=== PATIENT | female | born 1945 ===

== ENCOUNTER 2017-12-21 10:32 | Inpatient (IN) | payer OTHER ==
[~2017-12-21] VITALS: Ht 167.6 cm; Wt 137.6 kg
--- NOTE | 2017-12-21 10:53 | CT SCAN REPORT ---
EXAMINATION: CT HEAD WITHOUT CONTRAST CLINICAL INFORMATION: Left-sided facial droop. Question cerebrovascular accident. COMPARISON: No relevant prior imaging. TECHNIQUE: Contiguous axial imaging was performed from the skull base to vertex without intravenous administration of contrast. DLP: 620.92 mGy-cm FINDINGS: There is no acute intracranial hemorrhage or abnormal extra-axial collection. No intracranial mass effect or midline shift. Lateral and third ventricles are proportionate to the subarachnoid spaces. Mild global parenchymal volume loss. No hydrocephalus. Scattered ill-defined foci of hypoattenuation are visualized within the periventricular white matter that most likely represent a chronic manifestation of small vessel ischemia. Arana-white matter differentiation is otherwise grossly preserved and there is no evidence of acute territorial infarct. The calvarium and skull base are intact. Mastoid air cells and middle ear cavities are well aerated. Visualized paranasal sinuses are well aerated. IMPRESSION: Mild global parenchymal volume loss and scattered chronic small vessel ischemic changes within the periventricular white matter. No evidence of acute territorial infarct or hemorrhage. This critical result was discussed with Dixon Green at 12/21/2017 10:48 AM and it was ascertained that the content and urgency of the report was understood at the time of direct communication.
--- NOTE | 2017-12-21 11:01 | ED NEURO DEFICIT/STROKE ---
See Addendum History of Present Illness General Chief Complaint: Neuro Symptoms/ Deficit Stated Complaint: BIBA FOR STROKE ALERT Source: patient, family, EMS Exam Limitations: no limitations Vital Signs & Intake/Output Vital Signs & Intake/Output Vital Signs Date Time Temp Pulse Resp B/P B/P Pulse O2 O2 Flow FiO2 Mean Ox Delivery Rate 12/21 1205 Nasal 2.0L Cannula 12/21 1050 97.7 67 20 126/61 100 Room Air Allergies Coded Allergies: codeine (Mild, ITCHING 12/21/17) Reconcile Medications Albuterol Sulfate 2.5 MG/3 ML (0.083 %) VIAL.NEB 1 Vial INH/STEPHEN Q4P PRN SHORTNESS OF BREATH (Reported) Amitriptyline HCl 10 MG TABLET 1 TAB PO QPM SLEEP (Reported) Aspirin (Aspirin*) 81 MG TAB.CHEW 1 TAB PO DAILY HEART HEALTH (Reported) Atorvastatin Calcium 20 MG TABLET 1 TAB PO DAILY CHOLESTEROL (Reported) Budesonide 0.25 MG/2 ML AMPUL.NEB 1 Vial INH/STEPHEN BID PRN SHORTNESS OF BREATH (Reported) Gabapentin 100 MG CAPSULE 1 CAP PO QPM SLEEP (Reported) Glimepiride (Amaryl) 1 MG TABLET 1 TAB PO DAILY PRN DM (Reported) Metoprolol Succinate 50 MG TAB.ER.24H 1 TAB PO DAILY HEART (Reported) Pantoprazole Sodium 40 MG TABLET.DR 1 TAB PO DAILY GI (Reported) Sitagliptin Phosphate (Januvia) 25 MG TABLET 1 TAB PO DAILY DIABETES ( Reported) Sucroferric Oxyhydroxide (Velphoro) 500 MG IRON TAB.CHEW 1 TAB PO TID BLOOD ( Reported) Triage Nurses Notes Reviewed? yes HPI: 72-year-old female with a history of diabetes, hypertension, dialysis presents with acute onset of left-sided weakness and difficulty speaking. This was witnessed by daughter. Symptoms occurred at 10:00 this morning. EMS responded. They found her to have difficulty speaking but weakness was improving. They noted that the daughter believed her to have left-sided facial droop. Upon arrival, patient complains of generalized lower extremity weakness. She also describes some decreased sensation in bilateral lower extremities. There is no asymmetric weakness. Patient feels generally unwell. She denies any chest pain , headache. She did have nausea briefly. Patient denies a history of CVA, TIA or other related neurologic conditions. Patient does receive heparin around her dialysis. She is not on any chronic anticoagulation. Patient last dialyzed on Tuesday. She is due to dialyze today. Past History Travel History Traveled to [place] past 21 day No Medical History Any Pertinent Medical History? see below for history Neurological: NONE EENT: NONE Cardiovascular: hypertension, hyperlipidemia Respiratory: NONE Renal: ESRD on HD Surgical History Surgical History: non-contributory Psychosocial History Tobacco Use: Never used ETOH Use: occasional use Illicit Drug Use: denies illicit drug use Family History Hx Contributory? No Review of Systems Review of Systems Constitutional: Reports: malaise, weakness. EENTM: Denies: see HPI. Respiratory: Denies: no symptoms. Cardiovascular: Denies: no symptoms. GI: Reports: nausea. Denies: abdominal pain. Genitourinary: Denies: no symptoms. Musculoskeletal: Denies: no symptoms. Skin: Denies: no symptoms. Neurological/Psychological: Reports: see HPI, numbness, paresthesia. Hematologic/Endocrine: Denies: no symptoms. Immunologic/Allergic: Denies: no symptoms. All Other Systems: Reviewed and Negative Physical Exam Physical Exam General Appearance: well developed/nourished, no apparent distress, obese Head: atraumatic, normal appearance Eyes: Bilateral: normal appearance, PERRL, EOMI. Ears, Nose, Throat: normal ENT inspection, moist mucous membrane, hearing grossly normal Neck: normal inspection, supple, full range of motion Respiratory: normal breath sounds, chest non-tender, no respiratory distress Cardiovascular: regular rate/rhythm Gastrointestinal: normal bowel sounds, soft, non-tender, no organomegaly Back: normal inspection Extremities: normal range of motion, evidence of injury Psychiatric: awake, alert, oriented x 3 Cranial Nerves: normal hearing, normal speech, facial asymmetry Motor/Sensory: no motor/sensory deficits, No pronator drift, strength 5/5 upper extremities, 2/5 symmetric lower extremities Skin: intact, normal color, warm/dry Core Measures CVA/TIA Diagnosis: Yes Sepsis Present: No Sepsis Focused Exam Completed? No CHADS2 CHADS2 Response Value Hypertension History yes 1 Stroke or TIA Symptoms Previously yes 2 Total 3 Progress Differential Diagnosis: electrolyte imbalance, hypoglycemia, intracranial Hem., intracranial mass/tumor, stroke Plan of Care: Orders Procedure Date/time Status Nothing by Mouth 12/21 L Complete Nothing by Mouth 12/21 D Active Patient Data 12/21 1336 Active ED Holding Orders 12/21 1334 Active Admit to inpatient 12/21 1334 Active Vital Signs 12/21 1334 Active Code Status 12/21 1334 Active Saline Lock 12/21 1050 Active URINALYSIS 12/21 1050 Active PARTIAL THROMBOPLASTIN TIME 12/21 1050 Complete PROTHROMBIN TIME 12/21 1050 Complete COMPREHENSIVE METABOLIC PANEL 12/21 1050 Complete CBC WITHOUT DIFFERENTIAL 12/21 1050 Complete EKG 12/21 1050 Active Current Medications Sig/Matheus Start time Last Medication Dose Stop Time Status Admin Potassium Chloride 20 MEQ .Q6H40M 12/21 1100 UNVr (KCl 20MEQ in D5W NS 1000ML) Dextrose/Sodium 1,000 ML Chloride (D5-Normal Saline) Laboratory Tests 12/21/17 1110: Anion Gap 9, Estimated GFR 5 L, BUN/Creatinine Ratio 6.9 L, Glucose 97, Calcium 9.4, Total Bilirubin 0.6, AST 13 L, ALT 24, Alkaline Phosphatase 64, Total Protein 6.6, Albumin 3.9, Globulin 2.7, Albumin/Globulin Ratio 1.4, PT 10.4, INR 0.95, APTT 31, CBC w Diff NO MAN DIFF REQ, RBC 3.16 L, MCV 96.7, MCH 32.3 H, MCHC 33.4, RDW 16.0 H, MPV 9.6, Gran % 68.6, Lymphocytes % 21.7, Monocytes % 6.7, Eosinophils % 2.1, Basophils % 0.9, Absolute Granulocytes 3.1, Absolute Lymphocytes 1.0 L, Absolute Monocytes 0.3, Absolute Eosinophils 0.1, Absolute Basophils 0 Initial ED EKG: NSR, RBBB, nonspecific ST T wave chg Comments: Daughter is currently bedside. She reports that patient appears to be at her baseline status neurologically. She is speaking normally. Patient has a chronic mild left facial droop which is unchanged. I discussed plan regarding current workup and admission for TIA. Patient will be admitted for TIA. I have placed a page into nephrology to arrange for dialysis. Patient is due for dialysis today. Departure Departure Disposition: STILL A PATIENT Condition: Stable Clinical Impression Primary Impression: TIA (transient ischemic attack) Secondary Impressions: Anemia, ESRD (end stage renal disease) Referrals: Josh Grant MD (PCP/Family) Departure Forms: Customer Survey General Discharge Information ED Attending Observation Initial Observation Note: I have seen and personally examined ANNIKA TUCKER on 12/21/17 at 1350. I agree with the current emergency department documentation. The disposition (admission or discharge) is uncertain at this time, she needs a period of observation for the following reason(s): The ED Nurse caring for this patient has been personally informed as to what the patient is being observed for.
[2017-12-21 11:27] LABS: ABSOLUTE BASOPHIL COUNT 0 /CUMM (0.0-0.2); ABSOLUTE EOSINOPHIL COUNT 0.1 /CUMM (0.0-0.7); ABSOLUTE GRANULOCYTE CT 3.1 /CUMM (1.4-6.5); ABSOLUTE MONOCYTE COUNT 0.3 /CUMM (0.10-0.60); BASOPHIL % 0.9 % (0.0-2.0); EOSINOPHIL % 2.1 % (0-5); GRANULOCYTE % 68.6 % (42.2-75.2); HEMATOCRIT 30.6 % (37-47); MEAN CORPUSCULAR HGB 32.3 PG (27.0-31.0); MEAN CORPUSCULAR HGB CONC 33.4 G/DL (33.0-37.0); MEAN CORPUSCULAR VOLUME 96.7 FL (81.0-99.0); MEAN PLATELET VOLUME 9.6 FL (7.4-10.4); RED BLOOD CELL CT 3.16 /CUMM (4.20-5.40); WHITE BLOOD CELL COUNT 4.5 /CUMM (4.8-10.8)
[2017-12-21 11:31] LABS: PT 10.4 SEC (9.4-12.5); PTT 31 SEC (25-37)
[2017-12-21] MEDS ORDERED: METOPROLOL SUCC50 M2 PO (11:36)
[2017-12-21] MEDS ORDERED: VELPHORO500 M1 PO (11:36)
[2017-12-21] MEDS ORDERED: PANTOPRAZOLE SO40 M1 PO (11:37)
[2017-12-21] MEDS ORDERED: AMARYL1 M1 PO (11:37)
[2017-12-21] MEDS ORDERED: ATORVASTATIN CA20 M1 PO (11:38)
[2017-12-21 11:39] LABS: PLATELET COUNT 97 /CUMM (130-400)
[2017-12-21] MEDS ORDERED: ALBUTEROL2.5 MG/3 M INH/SOL (11:39)
[2017-12-21] MEDS ORDERED: BUDESONIDE0.25 MG/1 INH/SOL (11:39)
[2017-12-21] MEDS ORDERED: GABAPENTIN100 M2 PO (11:40)
[2017-12-21] MEDS ORDERED: ASPIRIN81 M4 PO (11:41)
[2017-12-21] MEDS ORDERED: AMITRIPTYLINE H10 M2 PO (11:41)
[2017-12-21] MEDS ORDERED: JANUVIA25 M1 PO (11:42)
--- NOTE | 2017-12-21 12:38 | RADIOLOGY REPORT ---
EXAMINATION: XR PORTABLE CHEST CLINICAL INFORMATION: Weakness. Presumptive diagnosis of CVA. COMPARISON: None TECHNIQUE: Portable AP semierect view of the chest was obtained. FINDINGS: EKG leads overlie the chest. Metallic clasps and rings are also seen projected over the shoulders bilaterally related to patient's clothing. The cardiomediastinal silhouette is enlarged. Low lung volumes are seen with bibasilar linear opacities, most consistent with subsegmental atelectasis. Mild central vascular congestion is seen. No overt pulmonary edema, focal consolidation, effusion or pneumothorax. Bony structures poorly seen and grossly unremarkable. IMPRESSION: Low lung volumes with bibasilar subsegmental atelectasis. Mild central vascular congestion. Otherwise unremarkable exam.
--- NOTE | 2017-12-21 13:35 | Admission Certification ---
Admission Certification Certification Statement - As attending physician, I certify that at the time of - admission, based on clinical presentation, severity of - symptoms, need for further diagnostic testing and - therapeutic interventions, and risk of adverse outcomes - without in-hospital treatment, in my clinical assessment, - this patient requires an acute hospital stay for a minimum - of two nights or longer. I have also considered psychsocial - factors such as support system, advanced age, financial - issues, cognitive issues, and failed out-patient treatments, - past re-admission history, safety of patient, and lack of - compliance as applicable. Specific rationale supporting this admission is: Suspected TIA in patient with hypertension, diabetes and end-stage renal disease on hemodialysis.
--- NOTE | 2017-12-21 13:50 | History & Physical ---
Alfa Bernardo 12/21/17 1342: General Information and HPI MD Statement: I have seen and personally examined ANNIKA TUCKER and documented this H&P. The patient is a 72 year old F who presented with a patient stated chief complaint of LEFT SIDED WEAKNESS AND DIFFICULTY SPEAKING. Source of Information: patient, family, old records, EMS Exam Limitations: no limitations History of Present Illness: 72 year old woman with past medical history of end stage renal failure currently on dialysis, hypertension, and hyperlipidemia comes ot the ED with complaints of left-sided weakness and difficulty speaking. This event happened in the presence of her daughter, who validated her history. The patient was getting dressed for dialysis this am at roughly 1000, when she felt weakness on her left side, lower extremity greater than upper, and decresased sensation on the left lower extremity. This episode lasted for roughly 20 minutes, after which the symtpoms resolved. The patient was brought to the emergency department by her daughter. The patient denies any feelings of chest pain, palpitations, shortness of breath , or headaches during this event. She endorses prior events like this one, not requiring hospitalization, and one requiring emergency department treatment at [place]. There they decided that TIA was the likely diagnosis, and discharged her without alterations to her medications. In the [place] ED, the patient was found to have a mild left facial droop, which is chronic and stated by daughter to be at her baseline. EKG was in normal sinus rhythm with RBBB. Patient is being admitted to telemetry for work up for TIA. Nephrology and neurology will be consulted for recommendations and to arrange dialysis, as patient is due for dialysis today. Allergies/Medications Allergies: Coded Allergies: codeine (Mild, ITCHING 12/21/17) Home Med list Albuterol Sulfate 2.5 MG/3 ML (0.083 %) VIAL.NEB 1 Vial INH/STEPHEN Q4P PRN SHORTNESS OF BREATH (Reported) Amitriptyline HCl 10 MG TABLET 1 TAB PO QPM SLEEP (Reported) Aspirin (Aspirin*) 81 MG TAB.CHEW 1 TAB PO DAILY HEART HEALTH (Reported) Atorvastatin Calcium 20 MG TABLET 1 TAB PO DAILY CHOLESTEROL (Reported) Budesonide 0.25 MG/2 ML AMPUL.NEB 1 Vial INH/STEPHEN BID PRN SHORTNESS OF BREATH (Reported) Gabapentin 100 MG CAPSULE 1 CAP PO QPM SLEEP (Reported) Glimepiride (Amaryl) 1 MG TABLET 1 TAB PO DAILY PRN DM (Reported) Metoprolol Succinate 50 MG TAB.ER.24H 1 TAB PO DAILY HEART (Reported) Pantoprazole Sodium 40 MG TABLET.DR 1 TAB PO DAILY GI (Reported) Sitagliptin Phosphate (Januvia) 25 MG TABLET 1 TAB PO DAILY DIABETES ( Reported) Sucroferric Oxyhydroxide (Velphoro) 500 MG IRON TAB.CHEW 1 TAB PO TID BLOOD ( Reported) Compliance With Home Meds: GOOD Past History Travel History Traveled to [place] past 21 day No Medical History Neurological: NONE EENT: NONE Cardiovascular: hypertension, hyperlipidemia Respiratory: NONE Gastrointestinal: GERD Renal: ESRD on HD Endocrine: diabetes Surgical History Surgical History: non-contributory Past Family/Social History Family History Relations & Conditions if any FATHER FH myocardial infarction male first degree age known Psychosocial History ETOH Use: occasional use Illicit Drug Use: denies illicit drug use Functional Ability ADLs Independent: dressing, eating, toileting, bathing. Ambulation: independent IADLs Independent: shopping, housework, finances, food prep, telephone, transportation , medication admin. Review of Systems Review of Systems Constitutional: Reports: weakness (left lower extremity). Denies: diaphoresis, fever. EENTM: Reports: see HPI. Cardiovascular: Denies: chest pain, palpitations, peripheral edema, syncope. Respiratory: Denies: cough, short of breath, wheezing. GI: Reports: no symptoms. Musculoskeletal: Denies: back pain, neck pain. Skin: Reports: no symptoms. Exam & Diagnostic Data Last 24 Hrs of Vital Signs/I&O Vital Signs Date Time Temp Pulse Resp B/P B/P Pulse O2 O2 Flow FiO2 Mean Ox Delivery Rate 12/21 1528 97.8 66 20 120/68 100 Nasal Cannula 12/21 1357 98.2 65 18 119/57 98 12/21 1205 Nasal 2.0L Cannula 12/21 1200 98.2 71 18 112/61 98 12/21 1050 97.7 67 20 126/61 100 Room Air Intake & Output 12/21 1600 12/21 0800 12/21 0000 Intake Total Output Total Balance Patient 302 lb Weight Physical Exam General Appearance Alert, Oriented X3, Cooperative, No Acute Distress Skin No Rashes, No Breakdown, No Significant Lesion Skin Temp/Moisture Exam: Warm/Dry HEENT Atraumatic, Mucous Membr. moist/pink Neck Supple, No JVD Cardiovascular Regular Rate, Normal S1, Normal S2, No Murmurs, Gallops, Rubs Lungs Clear to Auscultation, Normal Air Movement Abdomen Soft, No Tenderness Neurological Normal Speech, Strength at 5/5 X4 Ext, Normal Tone, Sensation Intact Last 24 Hrs of Labs/Bryson: Laboratory Tests 12/21/17 1110: Anion Gap 9, Estimated GFR 5 L, BUN/Creatinine Ratio 6.9 L, Glucose 97, Calcium 9.4, Total Bilirubin 0.6, AST 13 L, ALT 24, Alkaline Phosphatase 64, Total Protein 6.6, Albumin 3.9, Globulin 2.7, Albumin/Globulin Ratio 1.4, PT 10.4, INR 0.95, APTT 31, CBC w Diff NO MAN DIFF REQ, RBC 3.16 L, MCV 96.7, MCH 32.3 H, MCHC 33.4, RDW 16.0 H, MPV 9.6, Gran % 68.6, Lymphocytes % 21.7, Monocytes % 6.7, Eosinophils % 2.1, Basophils % 0.9, Absolute Granulocytes 3.1, Absolute Lymphocytes 1.0 L, Absolute Monocytes 0.3, Absolute Eosinophils 0.1, Absolute Basophils 0 Diagnostic Data EKG Results NSR, RBBB, nonspecific Twave abnormalities CXR Results IMPRESSION: Low lung volumes with bibasilar subsegmental atelectasis. Mild central vascular congestion. Otherwise unremarkable exam. Other Results Head CT: IMPRESSION: Mild global parenchymal volume loss and scattered chronic small vessel ischemic changes within the periventricular white matter. No evidence of acute territorial infarct or hemorrhage. Assessment/Plan Assessment: 72 year old woman with past medical history of end stage renal failure currently on dialysis, hypertension, and hyperlipidemia comes ot the ED with complaints of left-sided weakness and difficulty speaking. Problem list/plan: TIA -Patient is being admitted to telemetry for continuous heart monitoring and r/o TIA -I's and O's per protocol, vitals q shift -Head CT negative for acute hemorrhage or infarct -Echocardiogram to look for structural damage ESRD on dialysis M/W/F Hypertension Hyperlipidemia Diabetes -Accu-Cheks 3 times daily before meals DVT prophylaxis: Subcu heparin and ALPS Renal failure diet Patient is DNR/DNI As Ranked By This Provider Problem List: 1. TIA (transient ischemic attack) 2. ESRD (end stage renal disease) 3. Hypertension 4. Hyperlipidemia associated with type 2 diabetes mellitus 5. Diabetes type 2, controlled Core Measures/Misc (12/12) Acute Coronary Syndrome ACS Diagnosis: No Congestive Heart Failure Congestive Heart Failure Diagnosis No Cerebrovascular Accident CVA/TIA Diagnosis: Yes NIH Stroke Scale: Total 1 Date Last Known Well: 12/21/17 Time Last Known Well: 0100 Symptom Start Date: 12/21/17 Symptom Start Time: 1000 tPA Risk/Benefit discussion I have discussed the risks, benefits, and alternatives of Alteplase treatment including: - If given promptly, can resolve or have major improvement in stroke symptoms. - Bleeding (hemorrhage) is the most common risk that can occur. - Bleeding may occur into the brain and cause~exterminator helper serious disability~ including - this is rare, affecting about 1% of patients. - Alternative treatments with proven benefit for patients with stroke include aspirin and care in a specialized unit where staff members pay careful attention to a variety of basic aspects of care. tPA given? No Reason tPA not ordered Medical Contraindication (symptoms resolved) Swallow Evaluation Pass (MD Bernardo @~1430) Current/Past Hx AFib/AFlutter No VTE (View Protocol) VTE Risk Factors Age>40 No Mechanical VTE Prophylaxis d/t N/A MechProphylax Ordered No VTE Pharm Prophylaxis d/t NA PharmProphylax ordered Sepsis (View protocol) Sepsis Present: No If YES complete Sepsis Event Note If YES complete Sepsis Event Note Ramin SPANGLER,Niru 12/21/17 1517: Core Measures/Misc (12/12) Sepsis (View protocol) If YES complete Sepsis Event Note If YES complete Sepsis Event Note Attending MD Review Statement Attending Statement Attending MD Statement: examined this patient, discuss w/resident/PA/TOURS HOSTESS, agreed w/resident/PA/TOURS HOSTESS, reviewed EMR data (avail), discussed with nursing, discussed with case mgmt, reviewed images Attending Assessment/Plan: 72-year-old female past medical history of diabetes on oral hypoglycemics, hypertension and ESRD on hemodialysis. She is here with an acute episode of dysarthria and left leg weakness. By the time she came to the ER all his symptomatology had resolved and she is back to her baseline right now. She is normotensive on exam and has no focality on neurological exam, CT head is negative at this point. We will bring her in to telemetry to watch for A. fib, check an echocardiogram, get neurology to see her the question is should we add Plavix to her current regimen given that she takes a baby aspirin daily. She passed a bedside swallow eval in the ER so we can feed her and give her p.o. meds. PT eval. Get an MRI to rule out a CVA as that changes management dramatically. Pauline SPANGLER,Luz 12/21/17 1644: Core Measures/Misc (12/12) Sepsis (View protocol) If YES complete Sepsis Event Note If YES complete Sepsis Event Note Resident Review Statement Resident Statement: examined this patient, discussed with paid internship, agreed with paid internship, discussed with family, reviewed EMR data (avail), discussed with nursing , discussed with case mgmt, reviewed images, amended to note Other Findings: Patient is a 72-year-old female with past medical history significant for diabetes, hypertension, HLD, ESRD on dialysis // presented with sudden onset of left sided weakness, facial sensitivity, slurring of speech for around 20- 25min this morning around 10am. By the time she came to ER her symptoms completely resolved. she reports good compliance with her medications and no acitve complaints by the time of interview. she did have similar problem in the past, evlauted at [facility] several times. VS at presentation unremarkable. Physical exam - AAOX3, intact neurologically, clear lungs, normal s1, s2. Labs are unremarkable (H&H 01/24), negative troponin. Evaluation 72 YO Lady with risk factors including DM, HTN, HLD, ESRD presented with possible TIA, Her ABCD2 score 4 warrants admission. She is due for her dialysis today. Given resolution of symptoms by the time came to ER not a candidate for tPA. We will evlaute further for A.fib on tele, get a carotid doppler, MRI to rule out stroke, Lipid panel in am. Plan Admitted to telemetry floor Cerebrovascular accident - possible TIA, rule out ischemic stroke * Tele monitoring * ECHO * MRI * PT/OT/Speech - passed bedside swallow eval. * Carotid doppler * serial EKG, troponin * Neurology consult * Already on aspirin/statin -- candidate for plavix ESRD on dialysis on // she is due for dialysis today. I spoke with Dr. Ivy over phone - he wants to dialyse her tomorrow. * Dialysis in am * Get get labs with dialysis * continue iron supplementation HTN Continue her metoprolol XL 50mg daily HLD start atorvastatin 40mg daily (on 20mg at home) DM Accuchecks, ISS, hold oral hypoglycemics. continue gabapentine for neuropathy. DVT prophylaxis SC heparin code status DNR/DNI
[2017-12-21 15:28] VITALS: BP 120/68
--- NOTE | 2017-12-21 19:12 | MRI REPORT ---
MR BRAIN WITHOUT CONTRAST CLINICAL INFORMATION: Acute onset lower extremity weakness and slurring. COMPARISON: Head CT performed earlier the same day. TECHNIQUE: MRI of the brain without contrast was obtained using routine sequences. FINDINGS: Limited motion degraded MRI of the brain. There are a few chronic lacunar infarcts within the right cerebellum. Chronic lacunar infarct within the upper right thalamus. There is mild chronic microangiopathy and there is global cerebral volume loss. There is no hydrocephalus, extra-axial surface collection, or herniation. The major flow voids at the skull base are preserved. There is no acute infarct on diffusion-weighted imaging. There is no intracranial hemorrhage on the gradient recalled echo acquisition. The midline structures are normal. The cerebellar tonsils are normally positioned. The craniocervical junction is normal. Osseous marrow signal intensity is homogenous. The visualized soft tissues are unremarkable. IMPRESSION: - No acute intracranial findings. No acute infarcts. - Global cerebral volume loss, mild chronic microangiopathy, and chronic lacunar infarcts within the upper right thalamus and the right cerebellum.
--- NOTE | 2017-12-21 19:27 | ULTRASOUND REPORT ---
US DUPLEX CAROTID AND VERTEBRAL CLINICAL INFORMATION: Transient loss of consciousness/slurring. COMPARISON: None available. TECHNIQUE: Real-time ultrasound and Doppler techniques (integrating B-mode 2D vascular images, Doppler spectral analysis and color flow Doppler imaging) were utilized to interrogate the extracranial carotid and vertebral arteries bilaterally. The degree of stenosis determined by criteria similar to NASCET. FINDINGS: Right common carotid artery peak systolic velocity is 87 cm/s with a maximal end-diastolic velocity of 19 cm/s. Right internal carotid artery peak systolic velocity ranges between 50 and 65 cm/s with a maximal end-diastolic velocity of 28 cm/s. Right external carotid artery peak systolic velocity is 66 cm/s. There is antegrade flow within the right vertebral artery. Calcific atherosclerotic plaque at the right carotid bifurcation. Left common carotid artery peak systolic velocity ranges between 67 and 100 cm/s with a maximal end-diastolic velocity of 23 cm/s. Left internal carotid artery peak systolic velocity ranges between 61 and 84 cm/s with a maximal and end-diastolic velocity of 27 cm/s. There is antegrade flow within the left vertebral artery. There is calcific atherosclerotic plaque at the left carotid bifurcation. IMPRESSION: There is calcific atherosclerotic disease at the carotid bifurcations bilaterally with less than 50% stenoses of the internal carotid arteries by sonographic criteria.
[2017-12-21 23:00] VITALS: BP 110/60
[2017-12-22 06:36] VITALS: BP 84/54
--- NOTE | 2017-12-22 07:00 | PN- Housestaff ---
Alfa Bernardo 12/22/17 0659: Subjective Follow-up For: Left-sided weakness Dysarthria Complaints: no complaints Subjective: Patient seen and examined at the bedside along with PA student. Patient denies any complaints, states she slept well. Otherwise denies any pain, headache, fever, chills, blurred/double vision, lightheadedness/dizziness, current chest pain at rest, palpitations, heartburn, shortness breath, cough, vomiting, abdominal pain, or urinary symptoms. Review of Systems Constitutional: Reports: see HPI. Objective Last 24 Hrs of Vital Signs/I&O Vital Signs Date Time Temp Pulse Resp B/P B/P Pulse O2 O2 Flow FiO2 Mean Ox Delivery Rate 12/22 0817 70 102/62 12/22 0813 70 102/62 12/22 0800 Nasal 2.0L Cannula 12/22 0636 97.7 67 20 84/54 100 Nasal 2.0L Cannula 12/21 2300 98.1 70 20 110/60 99 12/21 2036 Nasal 2.0L Cannula 12/21 1733 Nasal 2.0L Cannula 12/21 1528 97.8 66 20 120/68 100 Nasal Cannula Intake & Output 12/22 1600 12/22 0800 12/22 0000 Intake Total 280 120 Output Total Balance 280 120 Intake, Oral 280 120 Patient 288 lb 288 lb Weight Weight Bed scale Measurement Method Physical Exam General Appearance: Alert, Oriented X3, Cooperative, No Acute Distress Skin: No Rashes, No Breakdown, No Significant Lesion Skin Temp/Moisture Exam: Warm/Dry Cardiovascular: Regular Rate, Normal S1, Normal S2, No Murmurs, Gallops, Rubs Lungs: Clear to Auscultation, Normal Air Movement Abdomen: Soft, No Tenderness Neurological: Normal Speech, Strength at 5/5 X4 Ext, Normal Tone, Sensation Intact Extremities: No Clubbing, No Cyanosis, No Edema Current Medications: Current Medications Sig/Matheus Start time Last Medication Dose Route Stop Time Status Admin Acetaminophen 0 .STK-MED ONE 12/23 451 DC PO Acetaminophen 325 MG ONCE ONE 12/22 444 DC 12/22 PO 12/22 445 044 Amitriptyline HCl 10 MG QPM 12/21 2100 AC 12/21 PO 2355 Aspirin Buffered 81 MG DAILY 12/22 09 AC 12/22 PO 0835 Atorvastatin Calcium 40 MG 1700 12/21 1745 AC 12/21 PO 2355 Budesonide/ 2 PUF BID 12/21 2100 AC 12/22 Formoterol Fumarate INH 0835 Enoxaparin Sodium 40 MG DAILY 12/21 1537 DC SC Epoetin Ike 4,000 UNIT DAILY PRN 12/22 0945 AC IV Ferrous Sulfate 325 MG DAILY 12/22 0900 AC 12/22 PO 0835 Gabapentin 100 MG QPM 12/21 2100 AC 12/21 PO 2355 Heparin Sodium 5,000 UNIT Q8 12/21 1551 DC 12/22 (Porcine) SC 0615 Influenza Virus 0 .STK-MED ONE 12/22 0836 DC Vaccine IM Influenza Virus 0.5 ML ONCE ONE 12/21 1815 DC 12/22 Vaccine IM 12/21 181 0838 Insulin Aspart 0 TIDAC 12/21 1700 AC SC Lorazepam 1 MG ONCE ONE 12/21 1800 DC 12/21 IV 12/21 1801 1752 Lorazepam 0 .STK-MED ONE 12/21 1753 DC .ROUTE Metoprolol Succinate 50 MG DAILY 12/22 0900 AC PO Omeprazole 40 MG DAILY AC 12/22 0700 AC 12/22 PO 0614 Potassium Chloride 20 MEQ .Q6H40M 12/21 1100 DC Dextrose/Sodium 1,000 ML IV Chloride Sodium Chloride 250 ML BOLUS ONE 12/22 0630 DC 12/22 IV 12/22 0729 0650 Last 24 Hrs of Lab/Bryson Results Last 24 Hrs of Labs/Mics: Laboratory Tests 12/22/17 0925: Estimated GFR 4 L, BUN/Creatinine Ratio 6.2 L, Calcium 8.8, Phosphorus 3.9, Magnesium 3.8 H, Albumin 3.5 12/22/17 0630: Anion Gap 10, Estimated GFR 4 L, BUN/Creatinine Ratio 6.1 L, Triglycerides 119 , Cholesterol 128, LDL Cholesterol, Calc 63 L, HDL Cholesterol 42, Cholesterol/ HDL Ratio 3, CBC w Diff NO MAN DIFF REQ, RBC 2.98 L, MCV 97.9, MCH 31.7 H, MCHC 32.4 L, RDW 15.8 H, MPV 10.4, Gran % 57.1, Lymphocytes % 33.2, Monocytes % 6.0, Eosinophils % 3.2, Basophils % 0.5, Absolute Granulocytes 2.3, Absolute Lymphocytes 1.3, Absolute Monocytes 0.2, Absolute Eosinophils 0.1, Absolute Basophils 0 Assessment/Plan Assessment: 72 year old woman with past medical history of end stage renal failure currently on dialysis, hypertension, and hyperlipidemia comes ot the ED with complaints of left-sided weakness and difficulty speaking. Problem list/plan: TIA -Patient is being admitted to telemetry for continuous heart monitoring and r/o TIA -I's and O's per protocol, vitals q shift -Head CT negative for acute hemorrhage or infarct -MRI essential negative; global cerebral volume loss but nothing acute -Carotid dopplers show < 50% occlusion -Echocardiogram to look for structural damage, pending ESRD on dialysis M/W/F Hypertension Hyperlipidemia Diabetes -Accu-Cheks 3 times daily before meals DVT prophylaxis: Subcu heparin and ALPS Renal failure diet Patient is DNR/DNI Problem List: 1. TIA (transient ischemic attack) 2. ESRD (end stage renal disease) 3. Hypertension 4. Hyperlipidemia associated with type 2 diabetes mellitus 5. Diabetes type 2, controlled Pain Ratin Pain Location: none Pain Goal: Remain pain free Pain Plan: Tylenol prn Tomorrow's Labs & Rationales: no labs Niru Faustin MD 12/22/17 0950: Attending MD Review Statement Attending Statement Attending MD Statement: examined this patient, discuss w/resident/PA/MATHEMATICAL STATISTICIAN, agreed w/resident/PA/MATHEMATICAL STATISTICIAN, discussed with family, reviewed EMR data (avail), discussed with nursing, discussed with case mgmt, reviewed images Attending Assessment/Plan: Her family is very concerned the patient is having these episodes fairly frequently. They are obviously worried whether these are TIAs that will progress to a stroke or whether these are seizures. She is going to have an EEG as per nephrology and we have neurology consult pending. We she is already on an aspirin statin and the MRI was negative for an acute stroke. Will follow up closely.
[2017-12-22 07:57] LABS: ABSOLUTE BASOPHIL COUNT 0 /CUMM (0.0-0.2); ABSOLUTE EOSINOPHIL COUNT 0.1 /CUMM (0.0-0.7); ABSOLUTE GRANULOCYTE CT 2.3 /CUMM (1.4-6.5); ABSOLUTE LYMPH COUNT 1.3 /CUMM (1.2-3.4); ABSOLUTE MONOCYTE COUNT 0.2 /CUMM (0.10-0.60); BASOPHIL % 0.5 % (0.0-2.0); EOSINOPHIL % 3.2 % (0-5); GRANULOCYTE % 57.1 % (42.2-75.2); HEMATOCRIT 29.1 % (37-47); MEAN CORPUSCULAR HGB 31.7 PG (27.0-31.0); MEAN CORPUSCULAR HGB CONC 32.4 G/DL (33.0-37.0); MEAN CORPUSCULAR VOLUME 97.9 FL (81.0-99.0); MEAN PLATELET VOLUME 10.4 FL (7.4-10.4); PLATELET COUNT 95 /CUMM (130-400); RBC DISTRIBUTION WIDTH 15.8 % (11.5-14.5); RED BLOOD CELL CT 2.98 /CUMM (4.20-5.40)
--- NOTE | 2017-12-22 08:11 | Cons- Nephrology ---
General Information and HPI Consulting Request Date of Consult: 12/22/17 Requested By: Niru Faustin MD Reason for Consult: ESRD Source of Information: patient, old records Exam Limitations: no limitations History of Present Illness: 72yr old AA female w mult med problems including obesity, DM, HTN, mult CVAs/ TIAs, & ESRD on chronic HD admited yesterday after period of decreased reaponsiveness, difficulty speaking, & L sided weakness. Improved after ~ 20 minutes w/o witnessed generalized sz activity. Has had similar episodes in past. No documented hypoglycemia. Last HD 3 days ago but w/o uremic sx or SOB. Denies fever, palpitations, or CP. No vomitiing or diarrhea. Allergies/Medications Allergies: Coded Allergies: codeine (Mild, ITCHING 12/21/17) Home Med List: Albuterol Sulfate 2.5 MG/3 ML (0.083 %) VIAL.NEB 1 Vial INH/STEPHEN Q4P PRN SHORTNESS OF BREATH (Reported) Amitriptyline HCl 10 MG TABLET 1 TAB PO QPM SLEEP (Reported) Aspirin (Aspirin*) 81 MG TAB.CHEW 1 TAB PO DAILY HEART HEALTH (Reported) Atorvastatin Calcium 20 MG TABLET 1 TAB PO DAILY CHOLESTEROL (Reported) Budesonide 0.25 MG/2 ML AMPUL.NEB 1 Vial INH/STEPHEN BID PRN SHORTNESS OF BREATH (Reported) Gabapentin 100 MG CAPSULE 1 CAP PO QPM SLEEP (Reported) Glimepiride (Amaryl) 1 MG TABLET 1 TAB PO DAILY PRN DM (Reported) Metoprolol Succinate 50 MG TAB.ER.24H 1 TAB PO DAILY HEART (Reported) Pantoprazole Sodium 40 MG TABLET.DR 1 TAB PO DAILY GI (Reported) Sitagliptin Phosphate (Januvia) 25 MG TABLET 1 TAB PO DAILY DIABETES ( Reported) Sucroferric Oxyhydroxide (Velphoro) 500 MG IRON TAB.CHEW 1 TAB PO TID BLOOD ( Reported) Review of Systems Review of Systems Constitutional: Reports: no symptoms. EENTM: Reports: no symptoms. Cardiovascular: Reports: no symptoms. Respiratory: Reports: no symptoms. GI: Reports: no symptoms. Genitourinary: Reports: no symptoms. Musculoskeletal: Reports: no symptoms. Skin: Reports: no symptoms. Neurological/Psychological: Reports: weakness, other (see hpi). Hematologic/Endocrine: Reports: no symptoms. Immunologic/Allergic: Reports: no symptoms. All Other Systems: Reviewed and Negative Past History Travel History Traveled to [place] past 21 day No Medical History Blood Transfusion Hx: No Neurological: NONE EENT: NONE Cardiovascular: hypertension, hyperlipidemia Respiratory: NONE Gastrointestinal: GERD Renal: ESRD on HD Endocrine: diabetes Surgical History Surgical History: non-contributory Family History Relations & Conditions If Any: FATHER FH myocardial infarction male first degree age known Relation not specified for: FH: diabetes mellitus FH: hypertension Psychosocial History Where Do You Live? Home Smoking Status: Former Smoker ETOH Use: occasional use Illicit Drug Use: denies illicit drug use Functional Ability ADLs Independent: dressing, eating, toileting, bathing. Ambulation: independent IADLs Independent: shopping, housework, finances, food prep, telephone, transportation , medication admin. Exam & Diagnostic Data Vital Signs and I&O Vital Signs Date Time Temp Pulse Resp B/P B/P Pulse O2 O2 Flow FiO2 Mean Ox Delivery Rate 12/22 0636 97.7 67 20 84/54 100 Nasal 2.0L Cannula 12/21 2300 98.1 70 20 110/60 99 12/21 2036 Nasal 2.0L Cannula 12/21 1733 Nasal 2.0L Cannula 12/21 1528 97.8 66 20 120/68 100 Nasal Cannula 12/21 1357 98.2 65 18 119/57 98 12/21 1205 Nasal 2.0L Cannula 12/21 1200 98.2 71 18 112/61 98 12/21 1050 97.7 67 20 126/61 100 Room Air Intake & Output 12/22 1600 12/22 0400 12/21 1600 12/21 0400 12/20 1600 12/20 0400 Intake Total 120 Output Total Balance 120 Intake, Oral 120 Patient 288 lb 288 lb 302 lb Weight Weight Bed scale Measurement Method Physical Exam General Appearance: no apparent distress, alert, awake Head: atraumatic, normal appearance Eyes: Bilateral: normal appearance. Ears, Nose, Throat: normal ENT inspection Neck: normal inspection Respiratory: normal breath sounds, no respiratory distress, quiet respiration, lungs clear Cardiovascular: regular rate/rhythm, friction rub (none) Gastrointestinal: soft, non-tender, no organomegaly Extremities: no edema, + bruit LLA AVF Neurologic/Psych: no motor/sensory deficits, awake, alert, credit control assistant II-XII nml as tested, disoriented to yr & month Skin: intact, normal color, warm/dry Lymphatic: no anterior cervical nicky, no axil Results Pertinent Lab Results: Laboratory Tests 12/22 12/21 0630 1110 Chemistry Sodium (137 - 145 mmol/L) Pending 142 Potassium (3.5 - 5.1 mmol/L) Pending 4.7 Chloride (98 - 107 mmol/L) Pending 99 Carbon Dioxide (22 - 30 mmol/L) Pending 34 H Anion Gap (5 - 16) Pending 9 BUN (7 - 17 mg/dL) Pending 57 H Creatinine (0.5 - 1.0 mg/dL) Pending 8.3 *H Estimated GFR (>60 ml/min) 5 L BUN/Creatinine Ratio (7 - 25 %) Pending 6.9 L Glucose (65 - 99 mg/dL) 97 Calcium (8.4 - 10.2 mg/dL) 9.4 Total Bilirubin (0.2 - 1.3 mg/dL) 0.6 AST (14 - 36 U/L) 13 L ALT (9 - 52 U/L) 24 Alkaline Phosphatase (<127 U/L) 64 Total Protein (6.3 - 8.2 g/dL) 6.6 Albumin (3.5 - 5.0 g/dL) 3.9 Globulin (1.9 - 4.2 gm/dL) 2.7 Albumin/Globulin Ratio (1.1 - 2.2 %) 1.4 Triglycerides Pending Cholesterol Pending LDL Cholesterol, Calc Pending HDL Cholesterol Pending Cholesterol/HDL Ratio Pending Coagulation PT (9.4 - 12.5 SEC) 10.4 INR (0.90 - 1.19) 0.95 APTT (25 - 37 SEC) 31 Hematology CBC w Diff Pending NO MAN DIFF REQ WBC (4.8 - 10.8 /CUMM) Pending 4.5 L RBC (4.20 - 5.40 /CUMM) Pending 3.16 L Hgb (12.0 - 16.0 G/DL) Pending 10.2 L Hct (37 - 47 %) Pending 30.6 L MCV (81.0 - 99.0 FL) Pending 96.7 MCH (27.0 - 31.0 PG) Pending 32.3 H MCHC (33.0 - 37.0 G/DL) Pending 33.4 RDW (11.5 - 14.5 %) Pending 16.0 H Plt Count (130 - 400 /CUMM) Pending 97 L MPV (7.4 - 10.4 FL) Pending 9.6 Gran % (42.2 - 75.2 %) 68.6 Lymphocytes % (20.5 - 51.1 %) 21.7 Monocytes % (1.7 - 9.3 %) 6.7 Eosinophils % (0 - 5 %) 2.1 Basophils % (0.0 - 2.0 %) 0.9 Absolute Granulocytes (1.4 - 6.5 /CUMM) 3.1 Absolute Lymphocytes (1.2 - 3.4 /CUMM) 1.0 L Absolute Monocytes (0.10 - 0.60 /CUMM) 0.3 Absolute Eosinophils (0.0 - 0.7 /CUMM) 0.1 Absolute Basophils (0.0 - 0.2 /CUMM) 0 Imaging/Other Studies: CXR: IMPRESSION: Low lung volumes with bibasilar subsegmental atelectasis. Mild central vascular congestion. Otherwise unremarkable exam. MR: IMPRESSION: No acute intracranial findings. No acute infarcts. Global cerebral volume loss, mild chronic microangiopathy, and chronic lacunar infarcts within the upper right thalamus and the right cerebellum. Doppler: IMPRESSION: There is calcific atherosclerotic disease at the carotid bifurcations bilaterally with less than 50% stenoses of the internal carotid arteries by sonographic criteria Assessment/Plan Assessment/Recommendations Assessment: 1. 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 Last HD 3 days ago & will dialyze later today. 2. MS change: improved; ? unwitnessed sz; ? TIA. Needs neuro consult & EEG. Recommendations: 1. HD today 2. neuro consult 3. EEG
[2017-12-22 08:13] VITALS: BP 102/62
--- NOTE | 2017-12-22 09:47 | PN- Student ---
Eduardo Harley 12/[birth year]/1738: Subjective Subjective: Ms. Elder is a 72-year-old female with PMH of sog-irrnh-iazpp-disease (GFR 5), hypertension, diabetes mellitus, hypercholesteremia presented to the ED yesterday AM complaining of a sudden onset of L-sided weakness and slurred speech. The episode started at 10 AM and lasted for approximately 20 minutes with her daughter's presence and resolved before arriving to the ED. A few seconds leading to the event, the patient noted a transient shooting pain of the R eye. On presentation, the patient reports residual numbness/tingling of the face and bilateral hands. She was able to recall the entire event without difficulty. She denied chills, diaphoresis, chest pain, shortness of breath, abdominal pain, loss of urinary or bowel movement. Of note, the patient reported a similar episode a few months ago in which she was discharged with TIA as a diagnosis at [facility]. The patient's daughter also reports chronic left sided facial droop that is unchanged after the event. The patient is on 2L home O2. Review of Systems Review of Systems Constitutional: Denies: see HPI, weakness. EENTM: Reports: no symptoms. Cardiovascular: Reports: no symptoms. Respiratory: Reports: no symptoms (ON 2L O2 SUPP). GI: Reports: no symptoms. Genitourinary: Reports: no symptoms. Musculoskeletal: Denies: back pain (CHRONIC BACKPAIN). Skin: Reports: no symptoms. Neurological/Psychological: Denies: see HPI, headache, numbness. Hematologic/Endocrine: Reports: no symptoms. Immunologic/Allergic: Reports: no symptoms. Objective Objective: Current Medications Sig/Matheus Start time Last Medication Dose Route Stop Time Status Admin Acetaminophen 0 .STK-MED ONE 12/22 0452 DC PO Acetaminophen 325 MG ONCE ONE 12/22 0445 DC 12/22 PO 12/22 0446 0449 Amitriptyline HCl 10 MG QPM 12/21 2100 AC 12/21 PO 235 Aspirin Buffered 81 MG DAILY 12/22 0900 AC 12/22 PO 0835 Atorvastatin Calcium 40 MG 1700 12/21 1745 AC 12/21 PO 2355 Budesonide/ 2 PUF BID 12/21 2099 AC 12/22 Formoterol Fumarate INH 0835 Epoetin Ike 4,000 UNIT DAILY PRN 12/22 0945 AC IV Ferrous Sulfate 325 MG DAILY 12/22 0900 AC 12/22 PO 0835 Gabapentin 100 MG QPM 12/21 2100 AC 12/21 PO 2355 Heparin Sodium 5,000 UNIT Q8 12/21 1551 DC 12/22 (Porcine) SC 0615 Influenza Virus 0 .STK-MED ONE 12/22 0836 DC Vaccine IM Influenza Virus 0.5 ML ONCE ONE 12/21 1815 DC 12/22 Vaccine IM 12/21 1816 0838 Insulin Aspart 0 TIDAC 12/21 1700 AC SC Lorazepam 1 MG ONCE ONE 12/21 1800 DC 12/21 IV 12/21 1801 1752 Lorazepam 0 .STK-MED ONE 12/21 1753 DC .ROUTE Metoprolol Succinate 50 MG DAILY 12/22 09 AC PO Omeprazole 40 MG DAILY AC 12/22 0700 AC 12/22 PO 0614 Sodium Chloride 250 ML BOLUS ONE 12/22 0630 DC 12/22 IV 12/22 0729 0650 Results Results: Laboratory Tests 12/22/17 0630: Anion Gap 10, Estimated GFR 4 L, BUN/Creatinine Ratio 6.1 L, Triglycerides 119 , Cholesterol 128, LDL Cholesterol, Calc 63 L, HDL Cholesterol 42, Cholesterol/ HDL Ratio 3, CBC w Diff NO MAN DIFF REQ, RBC 2.98 L, MCV 97.9, MCH 31.7 H, MCHC 32.4 L, RDW 15.8 H, MPV 10.4, Gran % 57.1, Lymphocytes % 33.2, Monocytes % 6.0, Eosinophils % 3.2, Basophils % 0.5, Absolute Granulocytes 2.3, Absolute Lymphocytes 1.3, Absolute Monocytes 0.2, Absolute Eosinophils 0.1, Absolute Basophils 0 12/21/17 1110: Anion Gap 9, Estimated GFR 5 L, BUN/Creatinine Ratio 6.9 L, Glucose 97, Calcium 9.4, Total Bilirubin 0.6, AST 13 L, ALT 24, Alkaline Phosphatase 64, Total Protein 6.6, Albumin 3.9, Globulin 2.7, Albumin/Globulin Ratio 1.4, PT 10.4, INR 0.95, APTT 31, CBC w Diff NO MAN DIFF REQ, RBC 3.16 L, MCV 96.7, MCH 32.3 H, MCHC 33.4, RDW 16.0 H, MPV 9.6, Gran % 68.6, Lymphocytes % 21.7, Monocytes % 6.7, Eosinophils % 2.1, Basophils % 0.9, Absolute Granulocytes 3.1, Absolute Lymphocytes 1.0 L, Absolute Monocytes 0.3, Absolute Eosinophils 0.1, Absolute Basophils 0 PHYSICAL EXAM Last 24hrs of Vital Signs Vital Signs Date Time Temp Pulse Resp B/P B/P Pulse O2 O2 Flow FiO2 Mean Ox Delivery Rate 12/22 1438 98.6 79 20 100/58 100 Room Air 12/22 0817 70 102/62 12/22 0813 70 102/62 12/22 0800 Nasal 2.0L Cannula 12/22 0636 97.7 67 20 84/54 100 Nasal 2.0L Cannula 12/21 2300 98.1 70 20 110/60 99 12/21 2036 Nasal 2.0L Cannula 12/21 1733 Nasal 2.0L Cannula Physical Exam General Appearance Alert, Oriented X3, Cooperative, No Acute Distress Skin No Rashes, No Breakdown, No Significant Lesion HEENT Atraumatic, PERRLA, EOMI Neck Supple, No JVD, No thryomegaly Cardiovascular Regular Rate, Normal S1, Normal S2, No Murmurs Lungs Clear to Auscultation, Normal Air Movement Abdomen Normal Bowel Sounds, Soft, No Tenderness, No Hepatospenomegaly, No Masses Neurological Normal Speech, Strength at 5/5 X4 Ext (Strength 4/5 x 2 lower ext), Normal Tone, Sensation Intact, Cranial Nerves 3-12 NL Extremities No Clubbing, No Cyanosis, No Edema, Normal Pulses, No Tenderness/ Swelling Vascular Normal Pulses, Pulses Symmetrical Assessment/Plan Assessment: Ms. Elder is a 72-year-old female with PMHx of kym-jljky-xvfoz-disease (GFR 5), hypertension, diabetes mellitus, hypercholesteremia presented to the ED yesterday AM complaining of a sudden onset of L-sided weakness and slurred speech. Physical examination was unremakable for significant acute neurological deficits. Hypotension of 84/54. Stable vitals otherwise. Head MRI was negative revealed chronic lacunar infarcts without acute intracranial findings. Carotid Ultrasound showed <50% stenosis. Telemonitor showed sinus rhythm with HR at 69. Plan - 250ml IV bolus x 1 given for hypotension - HD at noon today - EEG to r/o possible unwitnessed seizures - Start EPO and Iron supp per nephrology Alfa Bernardo 12/24/17 1641: Resident Review Statement Resident Statement: examined this patient, discussed w/ PA student, agree with PA student
--- NOTE | 2017-12-22 14:26 | Cons- Neurology ---
General Information and HPI Consulting Request Date of Consult: 12/22/17 Requested By: Niru Faustin MD Reason for Consult: Left side weakness Source of Information: patient Exam Limitations: no limitations History of Present Illness: This is a very pleasant 72 year old right handed AAW with multiple cardiovascular risk factors, who presents for evaluation of transient left sided weakness.She presented to the ED yesterday AM complaining of a sudden onset of L -sided weakness and slurred speech. The episode started at 10 AM and lasted for approximately 20 minutes with her daughter's presence and resolved before arriving to the ED. The patient reported a similar episode a few months ago in which she was worked up at [facility] for a TIA as a diagnosis. Allergies/Medications Allergies: Coded Allergies: codeine (Mild, ITCHING 12/21/17) Home Med List: Albuterol Sulfate 2.5 MG/3 ML (0.083 %) VIAL.NEB 1 Vial INH/STEPHEN Q4P PRN SHORTNESS OF BREATH (Reported) Amitriptyline HCl 10 MG TABLET 1 TAB PO QPM SLEEP (Reported) Aspirin (Aspirin*) 81 MG TAB.CHEW 1 TAB PO DAILY HEART HEALTH (Reported) Atorvastatin Calcium 20 MG TABLET 1 TAB PO DAILY CHOLESTEROL (Reported) Budesonide 0.25 MG/2 ML AMPUL.NEB 1 Vial INH/STEPHEN BID PRN SHORTNESS OF BREATH (Reported) Gabapentin 100 MG CAPSULE 1 CAP PO QPM SLEEP (Reported) Glimepiride (Amaryl) 1 MG TABLET 1 TAB PO DAILY PRN DM (Reported) Metoprolol Succinate 50 MG TAB.ER.24H 1 TAB PO DAILY HEART (Reported) Pantoprazole Sodium 40 MG TABLET.DR 1 TAB PO DAILY GI (Reported) Sitagliptin Phosphate (Januvia) 25 MG TABLET 1 TAB PO DAILY DIABETES ( Reported) Sucroferric Oxyhydroxide (Velphoro) 500 MG IRON TAB.CHEW 1 TAB PO TID BLOOD ( Reported) Current Medications: Current Medications Sig/Matheus Start time Last Medication Dose Route Stop Time Status Admin Acetaminophen 0 .STK-MED ONE 12/22 0452 DC PO Acetaminophen 325 MG ONCE ONE 12/225 DC 12/22 PO 12/22 0446 0449 Amitriptyline HCl 10 MG QPM 12/21 2100 AC 12/21 PO 2355 Aspirin Buffered 81 MG DAILY 12/22 0900 AC 12/22 PO 0835 Atorvastatin Calcium 40 MG 1700 12/21 1745 AC 12/21 PO 2355 Budesonide/ 2 PUF BID 12/21 2100 AC 12/22 Formoterol Fumarate INH 0835 Enoxaparin Sodium 40 MG DAILY 12/21 1537 DC SC Epoetin Ike 4,000 UNIT DAILY PRN 12/22 0945 AC IV Ferrous Sulfate 325 MG DAILY 12/22 0900 AC 12/22 PO 0835 Gabapentin 100 MG QPM 12/21 2100 AC 12/21 PO 2355 Heparin Sodium 5,000 UNIT Q8 12/21 1551 DC 12/22 (Porcine) SC 0615 Influenza Virus 0 .STK-MED ONE 12/22 0836 DC Vaccine IM Influenza Virus 0.5 ML ONCE ONE 12/21 1815 DC 12/22 Vaccine IM 12/21 181 0838 Insulin Aspart 0 TIDAC 12/21 1700 AC SC Lorazepam 1 MG ONCE ONE 12/21 1800 DC 12/21 IV 12/21 1801 1752 Lorazepam 0 .STK-MED ONE 12/21 1753 DC .ROUTE Metoprolol Succinate 50 MG DAILY 12/22 0900 AC PO Omeprazole 40 MG DAILY AC 12/22 0700 AC 12/22 PO 0614 Potassium Chloride 20 MEQ .Q6H40M 12/21 1100 DC Dextrose/Sodium 1,000 ML IV Chloride Sodium Chloride 250 ML BOLUS ONE 12/22 0630 DC 12/22 IV 12/22 0729 0650 Review of Systems Review of Systems: As per HPI otherwise negative to the 10 point complete ROS. Past History Travel History Traveled to [place] past 21 day No Medical History Blood Transfusion Hx: No Neurological: NONE EENT: NONE Cardiovascular: hypertension, hyperlipidemia, TIA Respiratory: NONE Gastrointestinal: GERD Renal: ESRD on HD Endocrine: diabetes Surgical History Surgical History: non-contributory Family History Relations & Conditions If Any: FATHER FH myocardial infarction male first degree age known Relation not specified for: FH: diabetes mellitus FH: hypertension Psychosocial History Where Do You Live? Home Smoking Status: Former Smoker ETOH Use: occasional use Illicit Drug Use: denies illicit drug use Functional Ability ADLs Independent: dressing, eating, toileting, bathing. Ambulation: independent IADLs Independent: shopping, housework, finances, food prep, telephone, transportation , medication admin. Exam & Diagnostic Data Vital Signs and I&O Vital Signs Date Time Temp Pulse Resp B/P B/P Pulse O2 O2 Flow FiO2 Mean Ox Delivery Rate 12/22 0817 70 102/62 12/22 0813 70 102/62 12/22 0800 Nasal 2.0L Cannula 12/22 0636 97.7 67 20 84/54 100 Nasal 2.0L Cannula 12/21 2300 98.1 70 20 110/60 99 12/21 2036 Nasal 2.0L Cannula 12/21 1733 Nasal 2.0L Cannula 12/21 1528 97.8 66 20 120/68 100 Nasal Cannula Intake & Output 12/22 1600 12/22 0800 12/22 0000 Intake Total 280 120 Output Total Balance 280 120 Intake, Oral 280 120 Patient 288 lb 288 lb Weight Weight Bed scale Measurement Method Physical Exam: Morbidly Obese. Alert and orientedx3. Fluent and comprehends. S1 and S2 normal. RRR. EOMI, ARIANA, no nystagmus, face symmetric, tongue midline, uvula midline, V1-V3 normal. TPZ strong, VF full. On motor exam there is no drift. Strength is 5/5 in arms proximal and distal. In legs proximal hip flexors are 4/5. Sensory exam consistent with loss of PP and vibration to shins. Reflexes are hypoattenuated and toes are mute. FNF normal. Gait deferred. Last 48 Hours of Lab Results: Laboratory Tests 12/22 12/22 0925 0630 Chemistry Sodium (137 - 145 mmol/L) 141 Potassium (3.5 - 5.1 mmol/L) 4.6 Chloride (98 - 107 mmol/L) 99 Carbon Dioxide (22 - 30 mmol/L) 31 H Anion Gap (5 - 16) 10 BUN (7 - 17 mg/dL) 61 H 61 H Creatinine (0.5 - 1.0 mg/dL) 9.8 *H 10.0 *H Estimated GFR (>60 ml/min) 4 L 4 L BUN/Creatinine Ratio (7 - 25 %) 6.2 L 6.1 L Calcium (8.4 - 10.2 mg/dL) 8.8 Phosphorus (2.5 - 4.5 mg/dL) 3.9 Magnesium (1.6 - 2.3 mg/dL) 3.8 H Albumin (3.5 - 5.0 g/dL) 3.5 Triglycerides (<150 mg/dL) 119 Cholesterol (<200 MG/DL) 128 LDL Cholesterol, Calc (65 - 129 mg/dL) 63 L HDL Cholesterol (40 - 60 mg/dL) 42 Cholesterol/HDL Ratio (0.00 - 4.23 %) 3 Hematology CBC w Diff NO MAN DIFF REQ WBC (4.8 - 10.8 /CUMM) 4.0 L RBC (4.20 - 5.40 /CUMM) 2.98 L Hgb (12.0 - 16.0 G/DL) 9.4 L Hct (37 - 47 %) 29.1 L MCV (81.0 - 99.0 FL) 97.9 MCH (27.0 - 31.0 PG) 31.7 H MCHC (33.0 - 37.0 G/DL) 32.4 L RDW (11.5 - 14.5 %) 15.8 H Plt Count (130 - 400 /CUMM) 95 L MPV (7.4 - 10.4 FL) 10.4 Gran % (42.2 - 75.2 %) 57.1 Lymphocytes % (20.5 - 51.1 %) 33.2 Monocytes % (1.7 - 9.3 %) 6.0 Eosinophils % (0 - 5 %) 3.2 Basophils % (0.0 - 2.0 %) 0.5 Absolute Granulocytes (1.4 - 6.5 /CUMM) 2.3 Absolute Lymphocytes (1.2 - 3.4 /CUMM) 1.3 Absolute Monocytes (0.10 - 0.60 /CUMM) 0.2 Absolute Eosinophils (0.0 - 0.7 /CUMM) 0.1 Absolute Basophils (0.0 - 0.2 /CUMM) 0 12/21 1110 Chemistry Sodium (137 - 145 mmol/L) 142 Potassium (3.5 - 5.1 mmol/L) 4.7 Chloride (98 - 107 mmol/L) 99 Carbon Dioxide (22 - 30 mmol/L) 34 H Anion Gap (5 - 16) 9 BUN (7 - 17 mg/dL) 57 H Creatinine (0.5 - 1.0 mg/dL) 8.3 *H Estimated GFR (>60 ml/min) 5 L BUN/Creatinine Ratio (7 - 25 %) 6.9 L Glucose (65 - 99 mg/dL) 97 Calcium (8.4 - 10.2 mg/dL) 9.4 Total Bilirubin (0.2 - 1.3 mg/dL) 0.6 AST (14 - 36 U/L) 13 L ALT (9 - 52 U/L) 24 Alkaline Phosphatase (<127 U/L) 64 Total Protein (6.3 - 8.2 g/dL) 6.6 Albumin (3.5 - 5.0 g/dL) 3.9 Globulin (1.9 - 4.2 gm/dL) 2.7 Albumin/Globulin Ratio (1.1 - 2.2 %) 1.4 Coagulation PT (9.4 - 12.5 SEC) 10.4 INR (0.90 - 1.19) 0.95 APTT (25 - 37 SEC) 31 Hematology CBC w Diff NO MAN DIFF REQ WBC (4.8 - 10.8 /CUMM) 4.5 L RBC (4.20 - 5.40 /CUMM) 3.16 L Hgb (12.0 - 16.0 G/DL) 10.2 L Hct (37 - 47 %) 30.6 L MCV (81.0 - 99.0 FL) 96.7 MCH (27.0 - 31.0 PG) 32.3 H MCHC (33.0 - 37.0 G/DL) 33.4 RDW (11.5 - 14.5 %) 16.0 H Plt Count (130 - 400 /CUMM) 97 L MPV (7.4 - 10.4 FL) 9.6 Gran % (42.2 - 75.2 %) 68.6 Lymphocytes % (20.5 - 51.1 %) 21.7 Monocytes % (1.7 - 9.3 %) 6.7 Eosinophils % (0 - 5 %) 2.1 Basophils % (0.0 - 2.0 %) 0.9 Absolute Granulocytes (1.4 - 6.5 /CUMM) 3.1 Absolute Lymphocytes (1.2 - 3.4 /CUMM) 1.0 L Absolute Monocytes (0.10 - 0.60 /CUMM) 0.3 Absolute Eosinophils (0.0 - 0.7 /CUMM) 0.1 Absolute Basophils (0.0 - 0.2 /CUMM) 0 Imaging/Other Studies: MR BRAIN WITHOUT CONTRAST CLINICAL INFORMATION: Acute onset lower extremity weakness and slurring. COMPARISON: Head CT performed earlier the same day. TECHNIQUE: MRI of the brain without contrast was obtained using routine sequences. FINDINGS: Limited motion degraded MRI of the brain. There are a few chronic lacunar infarcts within the right cerebellum. Chronic lacunar infarct within the upper right thalamus. There is mild chronic microangiopathy and there is global cerebral volume loss. There is no hydrocephalus, extra-axial surface collection, or herniation. The major flow voids at the skull base are preserved. There is no acute infarct on diffusion-weighted imaging. There is no intracranial hemorrhage on the gradient recalled echo acquisition. The midline structures are normal. The cerebellar tonsils are normally positioned. The craniocervical junction is normal. Osseous marrow signal intensity is homogenous. The visualized soft tissues are unremarkable. IMPRESSION: - No acute intracranial findings. No acute infarcts. - Global cerebral volume loss, mild chronic microangiopathy, and chronic lacunar infarcts within the upper right thalamus and the right cerebellum. 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 Recommendations: 1. If ok with nephro increase statin to 80mg. 2. If ok with Nephro switch aspirn to Plavix in diabetic. 3. BP control. 4. Telemetry for Afib. 5. PT/OT and speech. 6. Carotids and echo. YC Consult Acknowledgment - Thank you for your consult request.
[2017-12-22 14:38] VITALS: BP 100/58
[2017-12-22 22:35] VITALS: BP 122/62
[2017-12-23 06:36] VITALS: BP 122/62
--- NOTE | 2017-12-23 07:00 | PN- Housestaff ---
Alfa Bernardo 12/23/17 0700: Subjective Follow-up For: Left side weakness Dysarthria TIA Subjective: Patient seen and examined at the bedside. Tube of patient's daughters are present, one is there via phone. Patient states she slept well, but that her face still feels somewhat numb. Otherwise denies any pain, headache, fever, chills, blurred/double vision, lightheadedness/dizziness, current chest pain at rest, palpitations, heartburn, shortness breath, cough, vomiting, abdominal pain , or urinary symptoms. Review of Systems Constitutional: Reports: see HPI. Objective Last 24 Hrs of Vital Signs/I&O Vital Signs Date Time Temp Pulse Resp B/P B/P Pulse O2 O2 Flow FiO2 Mean Ox Delivery Rate 12/24 923 94 Nasal 2.0L Cannula 12/23 0636 98.2 83 18 122/62 100 Room Air 12/22 2235 99.1 86 18 122/62 99 Room Air 12/22 1438 98.6 79 20 100/58 100 Room Air Intake & Output 12/23 1600 12/23 0800 12/23 0000 Intake Total 300 120 Output Total Balance 300 120 Intake, Oral 300 120 Physical Exam General Appearance: Alert, Oriented X3, Cooperative, No Acute Distress Skin: No Rashes, No Breakdown, No Significant Lesion Skin Temp/Moisture Exam: Warm/Dry Cardiovascular: Regular Rate, Normal S1, Normal S2, No Murmurs, Gallops, Rubs Lungs: Clear to Auscultation, Normal Air Movement Abdomen: Soft, No Tenderness Neurological: Normal Speech, Strength at 5/5 X4 Ext, Normal Tone, sensation slightly decreased on face; nonfocal Extremities: No Clubbing, No Cyanosis, No Edema Current Medications: Current Medications Sig/Matheus Start time Last Medication Dose Route Stop Time Status Admin Amitriptyline HCl 10 MG QPM 12/21 2099 AC 12/22 PO 2041 Aspirin Buffered 81 MG DAILY 12/22 09 DC 12/22 PO 0835 Atorvastatin Calcium 80 MG 12/22 1700 AC 12/22 PO 2041 Atorvastatin Calcium 40 MG 12/21 1745 DC 12/21 PO 2355 Budesonide/ 2 PUF BID 12/21 2100 AC 12/23 Formoterol Fumarate INH 0842 Clopidogrel Bisulfate 75 MG DAILY 12/22 1609 AC 12/23 PO 0841 Epoetin Ike 4,000 UNIT DAILY PRN 12/22 0945 AC IV Ferrous Sulfate 325 MG DAILY 12/22 0900 AC 12/23 PO 0841 Gabapentin 100 MG QPM 12/21 2100 AC 12/22 PO 2042 Insulin Aspart 0 TIDAC 12/21 1700 AC 12/23 SC 0809 Metoprolol Succinate 50 MG DAILY 12/22 0900 DC PO Omeprazole 40 MG DAILY AC 12/22 0700 AC 12/23 PO 0613 Last 24 Hrs of Lab/Bryson Results Last 24 Hrs of Labs/Mics: Laboratory Tests 12/22/17 1326: Assessment/Plan Assessment: 72 year old woman with past medical history of end stage renal failure currently on dialysis, hypertension, and hyperlipidemia comes ot the ED with complaints of left-sided weakness and difficulty speaking. Problem list/plan: TIA -Patient is being admitted to telemetry for continuous heart monitoring and r/o TIA -I's and O's per protocol, vitals q shift -Head CT negative for acute hemorrhage or infarct -MRI essential negative; global cerebral volume loss but nothing acute -Carotid dopplers show < 50% occlusion -Echocardiogram to look for structural damage, pending ESRD on dialysis M/W/F Hypertension Hyperlipidemia Diabetes -Accu-Cheks 3 times daily before meals DVT prophylaxis: Subcu heparin and ALPS Renal failure diet Patient is DNR/DNI Problem List: 1. TIA (transient ischemic attack) 2. ESRD (end stage renal disease) 3. Hypertension 4. Hyperlipidemia associated with type 2 diabetes mellitus 5. Diabetes type 2, controlled Pain Ratin Pain Location: none Pain Goal: Remain pain free Pain Plan: Tylenol prn Tomorrow's Labs & Rationales: none Ramin SPANGLER,Niru 12/23/17 1047: Attending MD Review Statement Attending Statement Attending MD Statement: examined this patient, discuss w/resident/PA/WORKPLACE REHABILITATION OFFICER, agreed w/resident/PA/WORKPLACE REHABILITATION OFFICER, reviewed EMR data (avail), discussed with nursing, discussed with case mgmt, reviewed images Attending Assessment/Plan: Patient still does not feel back to baseline. She feels like her sensation on her face is different. She is a 72-year-old male with a past medical history of hypertension and end-stage renal disease on hemodialysis, diabetes on oral hypoglycemics and morbid obesity. She is here with a TIA-like symptom. She had leg weakness and dysarthria that resolved by the time she came to the ED. Thus far the workup with an MRI and carotid Doppler have been negative. We are pending an EEG and have switched her aspirin to Plavix and increase the dose of her Lipitor per neurology's recommendations. The family is concerned that she has a team of doctors who take care of her over to [facility] and they have been working on this in the past as she has had multiple TIAs before. In addition they are also concerned that the gas and oil servicer at [facility] had suggested that possibly low blood pressure in connection with dialysis is causing this to happen. At this point I am keeping her here for her EEG and neurological status. If everything is stable and the plan will be discharge in a.m. with close outpatient follow-up at [facility].
--- NOTE | 2017-12-23 08:27 | PN- Student ---
[facility] Eduardo Fallon 12/23/17 0824: Subjective Subjective: Ms. Elder is a 72-year-old female with PMH of paf-eackv-hgusx-disease (GFR 5), hypertension, diabetes mellitus, hypercholesteremia presented to the ED 3 days ago for possible TIA. The patient reports doing "okay". She was not able to fall asleep last night until 3 AM and reports feeling "strange" after taking her night medication Lipitor. The patient endorses residual R sided facial numbness and tingling of bilateral hands. The patient denies instability or weakness of 4 extremities. The patient received one dialysis session yesterday without fluid removal due to her hypotension. She denies chest pain, headache, fatigue, n/v, abdominal pain, changes in her urinary/bowel movememt changes. No additional concerns noted. Review of Systems Review of Systems Constitutional: Denies: see HPI. EENTM: Reports: no symptoms. Cardiovascular: Reports: no symptoms. Respiratory: Reports: no symptoms. GI: Reports: no symptoms. Musculoskeletal: Reports: no symptoms. Skin: Reports: no symptoms. Neurological/Psychological: Reports: see HPI. Hematologic/Endocrine: Reports: no symptoms. Immunologic/Allergic: Reports: no symptoms. Objective Objective: Current Medications Sig/Matheus Start time Last Medication Dose Route Stop Time Status Admin Amitriptyline HCl 10 MG QPM 12/21 2100 AC 12/22 PO 2042 Aspirin Buffered 81 MG DAILY 12/22 0900 DC 12/22 PO 0835 Atorvastatin Calcium 80 MG 1700 12/22 1700 AC 12/22 PO 2042 Atorvastatin Calcium 40 [place] 17012/21 1745 DC 12/21 PO 2355 Budesonide/ 2 PUF BID 12/21 2100 AC 12/23 Formoterol Fumarate INH 0842 Clopidogrel Bisulfate 75 MG DAILY 12/22 1609 AC 12/23 PO 0841 Epoetin Ike 4,000 UNIT DAILY PRN 12/22 0945 AC IV Ferrous Sulfate 325 MG DAILY 12/22 0900 AC 12/23 PO 0841 Gabapentin 100 MG QPM 12/21 2100 AC 12/22 PO 2042 Insulin Aspart 0 TIDAC 12/21 1700 AC 12/23 SC 0809 Metoprolol Succinate 50 MG DAILY 12/22 0900 DC PO Omeprazole 40 MG DAILY AC 12/22 0700 AC 12/23 PO 0613 Results Results: Laboratory Tests 12/22/17 1326: 12/22/17 0925: Estimated GFR 4 L, BUN/Creatinine Ratio 6.2 L, Calcium 8.8, Phosphorus 3.9, Magnesium 3.8 H, Albumin 3.5 12/22/17 0630: Anion Gap 10, Estimated GFR 4 L, BUN/Creatinine Ratio 6.1 L, Triglycerides 119 , Cholesterol 128, LDL Cholesterol, Calc 63 L, HDL Cholesterol 42, Cholesterol/ HDL Ratio 3, CBC w Diff NO MAN DIFF REQ, RBC 2.98 L, MCV 97.9, MCH 31.7 H, MCHC 32.4 L, RDW 15.8 H, MPV 10.4, Gran % 57.1, Lymphocytes % 33.2, Monocytes % 6.0, Eosinophils % 3.2, Basophils % 0.5, Absolute Granulocytes 2.3, Absolute Lymphocytes 1.3, Absolute Monocytes 0.2, Absolute Eosinophils 0.1, Absolute Basophils 0 12/21/17 1110: Anion Gap 9, Estimated GFR 5 L, BUN/Creatinine Ratio 6.9 L, Glucose 97, Calcium 9.4, Total Bilirubin 0.6, AST 13 L, ALT 24, Alkaline Phosphatase 64, Total Protein 6.6, Albumin 3.9, Globulin 2.7, Albumin/Globulin Ratio 1.4, PT 10.4, INR 0.95, APTT 31, CBC w Diff NO MAN DIFF REQ, RBC 3.16 L, MCV 96.7, MCH 32.3 H, MCHC 33.4, RDW 16.0 H, MPV 9.6, Gran % 68.6, Lymphocytes % 21.7, Monocytes % 6.7, Eosinophils % 2.1, Basophils % 0.9, Absolute Granulocytes 3.1, Absolute Lymphocytes 1.0 L, Absolute Monocytes 0.3, Absolute Eosinophils 0.1, Absolute Basophils 0 12/21/17 1050: Urine Color Cancelled, Urine Clarity Cancelled, Urine pH Cancelled, Ur Specific [place] Cancelled, Urine Protein Cancelled, Urine Ketones Cancelled, Urine Nitrite Cancelled, Urine Bilirubin Cancelled, Urine Urobilinogen Cancelled, Ur Leukocyte Esterase Cancelled, Ur Microscopic Cancelled, Urine Hemoglobin Cancelled, Urine Glucose Cancelled Assessment/Plan Assessment: Ms. Elder is a 72-year-old female with PMH of cwr-lpjnr-xrmmi-disease (GFR 5), hypertension, diabetes mellitus, hypercholesteremia presented to the ED 3 days ago for possible TIA. Afebrile and stable vitals overnight. Physical exam was unremarkable for focal neurological abnormalities. OT/PT evaluated the patient and suggested home services for additional assistance. #TIA - Continue new Lipitor dose of 80 mg and Plavix 75 mg PO. - Obtain EEG and Echo - Plan for discharge if negative EEG and Echo result #ESRD - Scheduled dialysis today - Patient's family has raised some concerns regarding a possible connection between transient hypotention 2/2 dialysis as a cause for the recurrent TIAs. - Continue to monitor patient's status today and discharge to her medical team at [facility] for further workup in the AM. Alfa Bernardo 12/24/17 7472: Resident Review Statement Resident Statement: examined this patient, reviewed EMR data (avail), discussed and agree with PA gerald
--- NOTE | 2017-12-23 08:57 | PN- Nephrology ---
Assessment/Plan Nephrology Assessment: 1. 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 2. MS change: presumed TIA. No objection to higher statin & Plavix Suggestion: Repeat HD today to return to usual MWF schedule OK for d/c from renal perspective post HD Subjective Subjective: No more neuro sx Neurology consult appreciated No SOB Tolerated HD yesterday w/o problem Objective Vital Signs and I&Os Vital Signs Date Time Temp Pulse Resp B/P B/P Pulse O2 O2 Flow FiO2 Mean Ox Delivery Rate 12/23 0536 98.2 83 18 122/62 100 Room Air 12/22 2235 99.1 86 18 122/62 99 Room Air 12/22 1438 98.6 79 20 100/58 100 Room Air Intake & Output 12/23 0400 12/22 0400 12/21 0400 Intake Total 300 120 990 120 Output Total 0 Balance 300 120 990 120 Intake, 0 Dialysate Intake, IV 10 Intake, Oral 300 120 980 120 Number 1 Bowel Movements Output, 0 Dialysate Output, Urine 0 Patient 288 lb 288 lb 302 lb Weight Weight Bed scale Measurement Method Physical Exam General Appearance: well developed/nourished, no apparent distress, alert, awake Head: atraumatic, normal appearance Ears, Nose, Throat: normal ENT inspection Neck: normal inspection Respiratory: no respiratory distress, quiet respiration, lungs clear Cardiovascular: regular rate/rhythm Abdomen: soft, non-tender, no organomegaly Extremities: no edema, + bruit LLA AVF Neurologic/Psychiatric: awake, alert, oriented x 3 Skin: intact, normal color Lymphatic: no anterior cervical nicky Current Medications: Current Medications Sig/Matheus Start time Last Medication Dose Route Stop Time Status Admin Amitriptyline HCl 10 MG QPM 12/21 2100 AC 12/22 PO 2041 Aspirin Buffered 81 MG DAILY 12/22 0900 DC 12/22 PO 0835 Atorvastatin Calcium 80 MG 1700 12/22 1700 AC 12/22 PO 204 Atorvastatin Calcium 40 MG 1700 12/21 1745 DC 12/21 PO 2355 Budesonide/ 2 PUF BID 12/21 2100 AC 12/23 Formoterol Fumarate INH 0842 Clopidogrel Bisulfate 75 MG DAILY 12/22 1609 AC 12/23 PO 0841 Epoetin Ike 4,000 UNIT DAILY PRN 12/22 0945 AC IV Ferrous Sulfate 325 MG DAILY 12/22 0900 AC 12/23 PO 0841 Gabapentin 100 MG QPM 12/21 2100 AC 12/22 PO 2042 Insulin Aspart 0 TIDAC 12/21 1700 AC 12/23 SC 0809 Metoprolol Succinate 50 MG DAILY 12/22 0900 AC PO Omeprazole 40 MG DAILY AC 12/22 0700 AC 12/23 PO 0613 Results Pertinent Lab Results: Laboratory Tests 12/22 12/22 12/22 1326 0925 0630 Chemistry Sodium (137 - 145 mmol/L) 141 Potassium (3.5 - 5.1 mmol/L) 4.6 Chloride (98 - 107 mmol/L) 99 Carbon Dioxide (22 - 30 mmol/L) 31 H Anion Gap (5 - 16) 10 BUN (7 - 17 mg/dL) 16 61 H 61 H Creatinine (0.5 - 1.0 mg/dL) 9.8 *H 10.0 *H Estimated GFR (>60 ml/min) 4 L 4 L BUN/Creatinine Ratio (7 - 25 %) 6.2 L 6.1 L Calcium (8.4 - 10.2 mg/dL) 8.8 Phosphorus (2.5 - 4.5 mg/dL) 3.9 Magnesium (1.6 - 2.3 mg/dL) 3.8 H Albumin (3.5 - 5.0 g/dL) 3.5 Triglycerides (<150 mg/dL) 119 Cholesterol (<200 MG/DL) 128 LDL Cholesterol, Calc (65 - 129 mg/dL) 63 L HDL Cholesterol (40 - 60 mg/dL) 42 Cholesterol/HDL Ratio (0.00 - 4.23 %) 3 Hematology CBC w Diff NO MAN DIFF REQ WBC (4.8 - 10.8 /CUMM) 4.0 L RBC (4.20 - 5.40 /CUMM) 2.98 L Hgb (12.0 - 16.0 G/DL) 9.4 L Hct (37 - 47 %) 29.1 L MCV (81.0 - 99.0 FL) 97.9 MCH (27.0 - 31.0 PG) 31.7 H MCHC (33.0 - 37.0 G/DL) 32.4 L RDW (11.5 - 14.5 %) 15.8 H Plt Count (130 - 400 /CUMM) 95 L MPV (7.4 - 10.4 FL) 10.4 Gran % (42.2 - 75.2 %) 57.1 Lymphocytes % (20.5 - 51.1 %) 33.2 Monocytes % (1.7 - 9.3 %) 6.0 Eosinophils % (0 - 5 %) 3.2 Basophils % (0.0 - 2.0 %) 0.5 Absolute Granulocytes (1.4 - 6.5 /CUMM) 2.3 Absolute Lymphocytes (1.2 - 3.4 /CUMM) 1.3 Absolute Monocytes (0.10 - 0.60 /CUMM) 0.2 Absolute Eosinophils (0.0 - 0.7 /CUMM) 0.1 Absolute Basophils (0.0 - 0.2 /CUMM) 0 12/21 12/21 1110 1050 Chemistry Sodium (137 - 145 mmol/L) 142 Potassium (3.5 - 5.1 mmol/L) 4.7 Chloride (98 - 107 mmol/L) 99 Carbon Dioxide (22 - 30 mmol/L) 34 H Anion Gap (5 - 16) 9 BUN (7 - 17 mg/dL) 57 H Creatinine (0.5 - 1.0 mg/dL) 8.3 *H Estimated GFR (>60 ml/min) 5 L BUN/Creatinine Ratio (7 - 25 %) 6.9 L Glucose (65 - 99 mg/dL) 97 Calcium (8.4 - 10.2 mg/dL) 9.4 Total Bilirubin (0.2 - 1.3 mg/dL) 0.6 AST (14 - 36 U/L) 13 L ALT (9 - 52 U/L) 24 Alkaline Phosphatase (<127 U/L) 64 Total Protein (6.3 - 8.2 g/dL) 6.6 Albumin (3.5 - 5.0 g/dL) 3.9 Globulin (1.9 - 4.2 gm/dL) 2.7 Albumin/Globulin Ratio (1.1 - 2.2 %) 1.4 Coagulation PT (9.4 - 12.5 SEC) 10.4 INR (0.90 - 1.19) 0.95 APTT (25 - 37 SEC) 31 Hematology CBC w Diff NO MAN DIFF REQ WBC (4.8 - 10.8 /CUMM) 4.5 L RBC (4.20 - 5.40 /CUMM) 3.16 L Hgb (12.0 - 16.0 G/DL) 10.2 L Hct (37 - 47 %) 30.6 L MCV (81.0 - 99.0 FL) 96.7 MCH (27.0 - 31.0 PG) 32.3 H MCHC (33.0 - 37.0 G/DL) 33.4 RDW (11.5 - 14.5 %) 16.0 H Plt Count (130 - 400 /CUMM) 97 L MPV (7.4 - 10.4 FL) 9.6 Gran % (42.2 - 75.2 %) 68.6 Lymphocytes % (20.5 - 51.1 %) 21.7 Monocytes % (1.7 - 9.3 %) 6.7 Eosinophils % (0 - 5 %) 2.1 Basophils % (0.0 - 2.0 %) 0.9 Absolute Granulocytes (1.4 - 6.5 /CUMM) 3.1 Absolute Lymphocytes (1.2 - 3.4 /CUMM) 1.0 L Absolute Monocytes (0.10 - 0.60 /CUMM) 0.3 Absolute Eosinophils (0.0 - 0.7 /CUMM) 0.1 Absolute Basophils (0.0 - 0.2 /CUMM) 0 Urines Urine Color Cancelled Urine Clarity Cancelled Urine pH Cancelled Ur Specific [place] Cancelled Urine Protein Cancelled Urine Ketones Cancelled Urine Nitrite Cancelled Urine Bilirubin Cancelled Urine Urobilinogen Cancelled Ur Leukocyte Esterase Cancelled Ur Microscopic Cancelled Urine Hemoglobin Cancelled Urine Glucose Cancelled Imaging/Other Studies: CXR: IMPRESSION: Low lung volumes with bibasilar subsegmental atelectasis. Mild central vascular congestion. Otherwise unremarkable exam. MR: IMPRESSION: No acute intracranial findings. No acute infarcts. Global cerebral volume loss, mild chronic microangiopathy, and chronic lacunar infarcts within the upper right thalamus and the right cerebellum. Doppler: IMPRESSION: There is calcific atherosclerotic disease at the carotid bifurcations bilaterally with less than 50% stenoses of the internal carotid arteries by sonographic criteria
--- NOTE | 2017-12-23 09:14 | ECHOCARDIOGRAM REPORT ---
ANNIKA TUCKER Age: 72 : 1945 Gender: F Exam Date: 12/22/2017 17:16 Exam Location: [address] Ht (in): 70 Wt (lb): 302 BSA: 2.67 BP: 84 / 54 Ordering Physician: Luz Carpenter MD Referring Physician: Del Faustin MD Technologist: Gaurang Hawkins [facility] Room Number: 184-01 Indications: Cerebrovascular disease, unspecified Rhythm: Technical Quality: Technically difficult study FINDINGS Left Ventricle Left ventricular cavity size normal. Left ventricular wall thickness mildly increased. No obvious regional wall motion abnormalities. Left ventricular ejection fraction is estimated at > 55 %. Right Ventricle Normal right ventricular size and function. Right Atrium Mild right atrial dilatation. Left Atrium Moderate left atrial dilatation. Mitral Valve Mild mitral annular calcification. Trace mitral regurgitation. Aortic Valve No aortic stenosis. Trileaflet aortic valve. Thickened aortic valve without stenosis. Tricuspid Valve Structurally normal tricuspid valve. Mild tricuspid regurgitation. Right ventricular systolic pressure estimated at 35 mmHg. Pulmonic Valve Pulmonic valve not well visualized, grossly normal. Pericardium No pericardial effusion. Great Vessels Normal size aortic root. CONCLUSIONS Left ventricular cavity size normal. Left ventricular wall thickness mildly increased. No obvious regional wall motion abnormalities. Left ventricular ejection fraction is estimated at > 55 %. Normal right ventricular size and function. Mild right atrial dilatation. Moderate left atrial dilatation. Right ventricular systolic pressure estimated at 35 mmHg. No pericardial effusion. Doug Duarte M.D. (Electronically Signed) Final Date: 23 December 2017 09:13 MEASUREMENTS (Male / Female) Normal Values 2D ECHO LV Diastolic Diameter PLAX 5.8 cm 4.2 - 5.9 / 3.9 - 5.3 cm LV Systolic Diameter PLAX 3.7 cm 2.1 - 4.0 cm LV Fractional Shortening PLAX 36.2 % 25 - 46 % LV Ejection Fraction 2D Teich 65.1 % IVS Diastolic Thickness 1.2 cm LVPW Diastolic Thickness 1.2 cm LV Relative Wall Thickness 0.4 LVOT Diameter 2.0 cm Aortic Root Diameter 3.7 cm LA Systolic Diameter LX 6.1 cm 3.0 - 4.0 / 2.7 - 3.8 cm LA Volume 159.0 cm 18 - 58 / 22 - 52 cm Ascending Aorta Diameter 3.3 cm DOPPLER AV Peak Velocity 207.0 cm/s AV Peak Gradient 17.1 mmHg AV Mean Velocity 137.0 cm/s AV Mean Gradient 9.0 mmHg AV Velocity Time Integral 32.8 cm LVOT Peak Velocity 114.0 cm/s LVOT Peak Gradient 5.2 mmHg LVOT Mean Velocity 67.9 cm/s LVOT Mean Gradient 2.0 mmHg LVOT Velocity Time Integral 20.6 cm LVOT Stroke Volume 64.7 cm AV Area Cont Eq vti 2.0 cm AV Area Cont Eq pk 1.7 cm MV Peak Velocity 102.0 cm/s MV Peak Gradient 4.2 mmHg MV Mean Velocity 71.4 cm/s MV Mean Gradient 2.0 mmHg Mitral E Point Velocity 97.4 cm/s Mitral A Point Velocity 60.3 cm/s Mitral E to A Ratio 1.6 MV PHT Velocity 96.0 cm/s MV Deceleration [place] 475.0 cm/s MV Pressure Half Time 60.6 ms MV Area PHT 3.6 cm MV Deceleration Time 197.0 ms TV Peak Velocity 273.0 cm/s TV Peak E Velocity 42.5 cm/s TV Peak A Velocity 48.0 cm/s TV E to A Ratio 0.9 Right Atrial Pressure 5.0 mmHg PV Peak Velocity 152.0 cm/s PV Peak Gradient 9.2 mmHg PV Mean Velocity 100.0 cm/s PV Mean Gradient 5.0 mmHg PV Velocity Time Integral 27.8 cm LV E' Lateral Velocity 8.4 cm/s Mitral E to LV E' Lateral Ratio 11.6 LV E' Septal Velocity 7.8 cm/s Mitral E to LV E' Septal Ratio 12.5
--- NOTE | 2017-12-23 13:21 | Patient Discharge Instructions ---
Discharge Instructions General Discharge Information Special Instructions: - Please follow up with your primary care physician within 1-2 weeks of discharge. Inform your primary care physician of this admission to [facility]. - Continue your current medications per discharge instructions. - Please watch for these problems: Fever, Chills, Nausea, Vomiting, Shortness of Breath, Productive Cough, Chest Pain/Discomfort, Abdominal Pain, Active Bleeding or Bloody urine/stool. Acute Coronary Syndrome Inclusion Criteria At DC or during hospital stay patient has or had the following: ACS DIAGNOSIS No Discharge Core Measures Meds if any: Prescribed or Continued at Discharge Meds if any: NOT Prescribed or Continued at Discharge Congestive Heart Failure Inclusion Criteria At DC or during hospital stay patient has or had the following: CHF DIAGNOSIS No Discharge Core Measures Meds if any: Prescribed or Continued at Discharge Meds if any: NOT Prescribed or Continued at Discharge Cerebrovascular accident Inclusion Criteria At DC or during hospital stay patient has or had the following: CVA/TIA Diagnosis Yes Discharge Core Measures Meds if any: Prescribed or Continued at Discharge Antithrombotic Yes Statin (required if LDL =>70) Yes Meds if any: NOT Prescribed or Continued at Discharge Venous thromboembolism Inclusion Criteria VTE Diagnosis No VTE Type NONE VTE Confirmed by (Test) NONE Discharge Core Measures - Per Current guidelines, there needs to be overlap - treatment for the first 5 days of Warfarin therapy. - If discharged on Warfarin prior to 5 days of - overlap therapy, the patient will need to be - assessed for post discharge needs including - *Post discharge parental anticoagulation - *Warfarin and/or parental anticoagulation education - *Follow up date to check INR post discharge At least 5 days overlap therapy as Inpatient No Meds if any: Prescribed or Continued at Discharge Note: Overlap Therapy is Warfarin and Anticoagulant Meds if any: NOT Prescribed or Continued at Discharge
[2017-12-23 16:23] LABS: ABSOLUTE BASOPHIL COUNT 0 /CUMM (0.0-0.2); ABSOLUTE EOSINOPHIL COUNT 0.1 /CUMM (0.0-0.7); ABSOLUTE GRANULOCYTE CT 2.2 /CUMM (1.4-6.5); ABSOLUTE LYMPH COUNT 1.3 /CUMM (1.2-3.4); ABSOLUTE MONOCYTE COUNT 0.3 /CUMM (0.10-0.60); BASOPHIL % 0.5 % (0.0-2.0); GRANULOCYTE % 56.6 % (42.2-75.2); MEAN CORPUSCULAR HGB 31.9 PG (27.0-31.0); MEAN CORPUSCULAR HGB CONC 33.3 G/DL (33.0-37.0); MEAN CORPUSCULAR VOLUME 95.7 FL (81.0-99.0); MEAN PLATELET VOLUME 10.3 FL (7.4-10.4); RBC DISTRIBUTION WIDTH 15.8 % (11.5-14.5); RED BLOOD CELL CT 2.92 /CUMM (4.20-5.40); WHITE BLOOD CELL COUNT 3.9 /CUMM (4.8-10.8)
[2017-12-23 16:24] LABS: PLATELET COUNT 97 /CUMM (130-400)
--- NOTE | 2017-12-23 18:11 | ELECTROENCEPHALOGRAM REPORT ---
Electroencephalogram Report Electroencephalogram Results Date of service: 12/23/17 Attending MD: Ramin SPANGLER,Niru Dailey Food Service: Nahed Velásquez EEG Number: [id number] Test Utilizes: 10-20 system, 21 lead 18 channel digital recording Pertinent Hx/Physical/Neuro Findings/Clin Diagnosis: Mental status change rule out seizure Inpatient Medications: Current Medications Sig/Matheus Start time Last Medication Dose Route Stop Time Status Admin Amitriptyline HCl 10 MG QPM 12/21 2100 AC 12/22 PO 204 Atorvastatin Calcium 80 MG 1700 12/22 1700 AC 12/22 PO 204 Budesonide/ 2 PUF BID 12/21 2100 AC 12/23 Formoterol Fumarate INH 0842 Clopidogrel Bisulfate 75 MG DAILY 12/22 1609 AC 12/23 PO 0841 Epoetin Ike 4,000 UNIT DAILY PRN 12/22 0945 AC IV Ferrous Sulfate 325 MG DAILY 12/22 0900 AC 12/23 PO 0841 Gabapentin 100 MG QPM 12/21 2100 AC 12/22 PO 204 Insulin Aspart 0 TIDAC 12/21 1700 AC 12/23 SC 0809 Metoprolol Succinate 50 MG DAILY 12/22 0900 DC PO Omeprazole 40 MG DAILY AC 12/22 0700 AC 12/23 PO 0613 Interpretation: EEG in wake and drowsy state During wakeful. Background is 9-10 cps activity In drowsy state background slows to 5-7 cps activity Photic stimulation induced no abnormality No focal or epileptiform activities noted Impression: Normal EEG in awake and drowsy state
[2017-12-23 19:42] VITALS: BP 134/86
[2017-12-23 22:58] VITALS: BP 126/78
[2017-12-24 06:30] VITALS: BP 98/52
--- NOTE | 2017-12-24 08:25 | PN- Housestaff ---
See Addendum Subjective Follow-up For: Left side weakness Dysarthria TIA Subjective: She is seen and examined sitting in the chair. Patient states she feels good, ready to return home. States she slept well, but face still feels somewhat numb. Numbness still affecting right arm and leg. EEG was negative yesterday. Otherwise denies any pain, headache, fever, chills, blurred/double vision, lightheadedness/dizziness, current chest pain at rest, palpitations, heartburn, shortness breath, cough, vomiting, abdominal pain, or urinary symptoms. Review of Systems Constitutional: Reports: see HPI. EENTM: Reports: see HPI. Objective Last 24 Hrs of Vital Signs/I&O Vital Signs Date Time Temp Pulse Resp B/P B/P Pulse O2 O2 Flow FiO2 Mean Ox Delivery Rate 12/24 0944 96 Nasal 2.0L Cannula 12/24 0630 98.2 80 20 98/52 99 Nasal Cannula 12/23 2258 98.9 96 20 126/78 98 12/23 1942 98.4 87 19 134/86 99 12/23 1930 Nasal 2.0L Cannula Intake & Output 12/24 1600 12/24 0800 12/24 0000 Intake Total 150 200 Output Total Balance 150 200 Intake, Oral 150 200 Patient 303 lb Weight Physical Exam General Appearance: Alert, Oriented X3, Cooperative, No Acute Distress Skin: No Rashes, No Breakdown, No Significant Lesion Skin Temp/Moisture Exam: Warm/Dry Cardiovascular: Regular Rate, Normal S1, Normal S2, No Murmurs, Gallops, Rubs Lungs: Clear to Auscultation, Normal Air Movement Abdomen: Soft, No Tenderness Neurological: Normal Speech, Strength at 5/5 X4 Ext, Normal Tone, Sensation Intact, some numbness on face, hand,leg; nonfocal Extremities: No Clubbing, No Cyanosis, No Edema Current Medications: Current Medications Sig/Matheus Start time Last Medication Dose Route Stop Time Status Admin Amitriptyline HCl 10 MG QPM 12/21 2099 AC 12/23 PO 2024 Atorvastatin Calcium 80 MG 1700 12/22 1700 AC 12/23 PO 2024 Budesonide/ 2 PUF BID 12/21 2099 AC 12/24 Formoterol Fumarate INH 813 Clopidogrel Bisulfate 75 MG DAILY 12/22 1609 AC 12/24 PO 0814 Epoetin Ike 4,000 UNIT DAILY PRN 12/22 0945 AC IV Ferrous Sulfate 325 MG DAILY 12/22 0900 AC 12/24 PO 813 Gabapentin 100 MG QPM 12/21 2100 AC 12/23 PO 2024 Insulin Aspart 0 TIDAC 12/21 1700 AC 12/23 SC 0809 Omeprazole 40 MG DAILY AC 12/22 0700 AC 12/24 PO 0556 Last 24 Hrs of Lab/Bryson Results Last 24 Hrs of Labs/Mics: Laboratory Tests 12/23/17 1315: Anion Gap 11, Estimated GFR 6 L, BUN/Creatinine Ratio 5.1 L, Glucose 98, Calcium 8.7, CBC w Diff NO MAN DIFF REQ, RBC 2.92 L, MCV 95.7, MCH 31.9 H, MCHC 33.3, RDW 15.8 H, MPV 10.3, Gran % 56.6, Lymphocytes % 32.5, Monocytes % 7.4, Eosinophils % 3.0, Basophils % 0.5, Absolute Granulocytes 2.2, Absolute Lymphocytes 1.3, Absolute Monocytes 0.3, Absolute Eosinophils 0.1, Absolute Basophils 0 Assessment/Plan Assessment: 72 year old woman with past medical history of end stage renal failure currently on dialysis, hypertension, and hyperlipidemia comes ot the ED with complaints of left-sided weakness and difficulty speaking. Patient is being discharged home with health services today. Problem list/plan: TIA -Patient is being admitted to telemetry for continuous heart monitoring and r/o TIA -I's and O's per protocol, vitals q shift -Head CT negative for acute hemorrhage or infarct -MRI essential negative; global cerebral volume loss but nothing acute -Carotid dopplers show < 50% occlusion -Echocardiogram to look for structural damage, pending -Atorvastatin now high intensity 80mg/day ESRD on dialysis M/W/F -Leaving hospital w/ plan for standard Tuesday dialysis Hypertension Hyperlipidemia Diabetes -Accu-Cheks 3 times daily before meals DVT prophylaxis: Subcu heparin and ALPS Renal failure diet Patient is DNR/DNI Problem List: 1. TIA (transient ischemic attack) 2. ESRD (end stage renal disease) 3. Hypertension 4. Hyperlipidemia associated with type 2 diabetes mellitus 5. Diabetes type 2, controlled Pain Ratin Pain Location: none Pain Goal: Remain pain free Pain Plan: tylenol prn Tomorrow's Labs & Rationales: none; discharging today
[2017-12-24] MEDS ORDERED: PLAVIX75 M1 PO (10:57)
[2017-12-24] MEDS ORDERED: ATORVASTATIN CA80 M1 PO (10:57)
--- NOTE | 2017-12-24 15:07 | Discharge Summary ---
Visit Information Visit Dates Admission Date: 12/21/17 Discharge Date: 12/24/17 Hospital Course Course Attending Physician: Ramin SPANGLER,Niru Dailey Primary Care Physician: Josh Grant MD Consulting Request: 1 Consulting Specialty: Nephrology Consulting Physician: Mark Hanson Reason for Consult: Dialysis patient Consulting Request: 2 Consulting Specialty: Neurology Consulting Physician: Brian Stephens Reason for Consult: TIA Hospital Course: 72 year old woman with past medical history of end stage renal failure currently on dialysis, hypertension, and hyperlipidemia comes ot the ED with complaints of left-sided weakness and difficulty speaking. This event happened in the presence of her daughter, who validated her history. The patient was getting dressed for dialysis this am at roughly 1000, when she felt weakness on her left side, lower extremity greater than upper, and decresased sensation on the left lower extremity. This episode lasted for roughly 20 minutes, after which the symtpoms resolved. The patient was brought to the emergency department by her daughter. The patient denies any feelings of chest pain, palpitations, shortness of breath , or headaches during this event. She endorses prior events like this one, not requiring hospitalization, and one requiring emergency department treatment at [place]. There they decided that TIA was the likely diagnosis, and discharged her without alterations to her medications. In the [place] ED, the patient was found to have a mild left facial droop, which is chronic and stated by daughter to be at her baseline. EKG was in normal sinus rhythm with RBBB. The patient was admitted to the telemetry floor and treated for the following conditions. TIA Patient was admitted to telemetry for continuous heart monitoring and to rule out TIA. Head CT was negative for acute hemorrhage or infarct. MRI was essentially negative with global cerebral volume loss but no acute processes. Doppler showed less than 50% occlusion of the carotid arteries. Echocardiogram was within normal limits. A neurology consult was placed, and an EEG was performed which returned normal. Patient was switched to Plavix per neurology request. Patient was increased to high intensity 80 mg/day atorvastatin ESRD on dialysis Tuesday Nephrology was consulted and the patient was dialyzed on and Tuesday of her stay. The patient was continued on iron supplementation and erythropoietin. The patient is leaving the hospital with plans for standard Tuesday dialysis on discharge. Hypertension The patient's home metoprolol was stopped due to low BP and per nephro recommendation Hyperlipidemia Patient's atorvastatin was converted to 80 mg daily Diabetes Patient's oral hypoglycemics were held the patient received Accu-Cheks and was treated with an insulin sliding scale. Gabapentin was continued for diabetic neuropathy Complications: None Allergies: Coded Allergies: codeine (Mild, ITCHING 12/21/17) Significant Procedures: SERVICE DATE: 12/21/17- EXAM TYPE: US - [id number] DOPPLER IMPRESSION: There is calcific atherosclerotic disease at the carotid bifurcations bilaterally with less than 50% stenoses of the internal carotid arteries by sonographic criteria. SERVICE DATE: 12/21/17- EXAM TYPE: MRI - MRI-HEAD W/O NORMAN IMPRESSION: - No acute intracranial findings. No acute infarcts. - Global cerebral volume loss, mild chronic microangiopathy, and chronic lacunar infarcts within the upper right thalamus and the right cerebellum. SERVICE DATE: 12/21/17-103 EXAM TYPE: CAT - CT HEAD WO IV CONTRAST IMPRESSION: Mild global parenchymal volume loss and scattered chronic small vessel ischemic changes within the periventricular white matter. No evidence of acute territorial infarct or hemorrhage. SERVICE DATE: 12/21/17-105 EXAM TYPE: RAD - XRY-PORTABLE CHEST XRAY IMPRESSION: Low lung volumes with bibasilar subsegmental atelectasis. Mild central vascular congestion. Otherwise unremarkable exam. SERVICE DATE: 12/21/17-144 EXAM TYPE: CARD - ECHOCARDIOGRAM ANNIKA TUCKER Age: 72 : 1945 Gender: F Exam Date: 12/22/2017 17:16 Exam Location: [place] Ht (in): 70 Wt (lb): 302 BSA: 2.67 BP: 84 / 54 Ordering Physician: Luz Carpenter MD Referring Physician: Del Faustin MD Technologist: Gaurang Hawkins RUST Room Number: 184-01 Indications: Cerebrovascular disease, unspecified Rhythm: Technical Quality: Technically difficult study FINDINGS Left Ventricle Left ventricular cavity size normal. Left ventricular wall thickness mildly increased. No obvious regional wall motion abnormalities. Left ventricular ejection fraction is estimated at > 55 %. Right Ventricle Normal right ventricular size and function. Right Atrium Mild right atrial dilatation. Left Atrium Moderate left atrial dilatation. Mitral Valve Mild mitral annular calcification. Trace mitral regurgitation. Aortic Valve No aortic stenosis. Trileaflet aortic valve. Thickened aortic valve without stenosis. Tricuspid Valve Structurally normal tricuspid valve. Mild tricuspid regurgitation. Right ventricular systolic pressure estimated at 35 mmHg. Pulmonic Valve Pulmonic valve not well visualized, grossly normal. Pericardium No pericardial effusion. Great Vessels Normal size aortic root. CONCLUSIONS Left ventricular cavity size normal. Left ventricular wall thickness mildly increased. No obvious regional wall motion abnormalities. Left ventricular ejection fraction is estimated at > 55 %. Normal right ventricular size and function. Mild right atrial dilatation. Moderate left atrial dilatation. Right ventricular systolic pressure estimated at 35 mmHg. No pericardial effusion. Doug Duarte M.D. (Electronically Signed) Final Date: 23 December 2017 09:13 MEASUREMENTS (Male / Female) Normal Values 2D ECHO LV Diastolic Diameter PLAX 5.8 cm 4.2 - 5.9 / 3.9 - 5.3 cm LV Systolic Diameter PLAX 3.7 cm 2.1 - 4.0 cm LV Fractional Shortening PLAX 36.2 % 25 - 46 % LV Ejection Fraction 2D Teich 65.1 % IVS Diastolic Thickness 1.2 cm LVPW Diastolic Thickness 1.2 cm LV Relative Wall Thickness 0.4 LVOT Diameter 2.0 cm Aortic Root Diameter 3.7 cm LA Systolic Diameter LX 6.1 cm 3.0 - 4.0 / 2.7 - 3.8 cm LA Volume 159.0 cm 18 - 58 / 22 - 52 cm Ascending Aorta Diameter 3.3 cm DOPPLER AV Peak Velocity 207.0 cm/s AV Peak Gradient 17.1 mmHg AV Mean Velocity 137.0 cm/s AV Mean Gradient 9.0 mmHg AV Velocity Time Integral 32.8 cm LVOT Peak Velocity 114.0 cm/s LVOT Peak Gradient 5.2 mmHg LVOT Mean Velocity 67.9 cm/s LVOT Mean Gradient 2.0 mmHg LVOT Velocity Time Integral 20.6 cm LVOT Stroke Volume 64.7 cm AV Area Cont Eq vti 2.0 cm AV Area Cont Eq pk 1.7 cm MV Peak Velocity 102.0 cm/s MV Peak Gradient 4.2 mmHg MV Mean Velocity 71.4 cm/s MV Mean Gradient 2.0 mmHg Mitral E Point Velocity 97.4 cm/s Mitral A Point Velocity 60.3 cm/s Mitral E to A Ratio 1.6 MV PHT Velocity 96.0 cm/s MV Deceleration [place] 475.0 cm/s MV Pressure Half Time 60.6 ms MV Area PHT 3.6 cm MV Deceleration Time 197.0 ms TV Peak Velocity 273.0 cm/s TV Peak E Velocity 42.5 cm/s TV Peak A Velocity 48.0 cm/s TV E to A Ratio 0.9 Right Atrial Pressure 5.0 mmHg PV Peak Velocity 152.0 cm/s PV Peak Gradient 9.2 mmHg PV Mean Velocity 100.0 cm/s PV Mean Gradient 5.0 mmHg PV Velocity Time Integral 27.8 cm LV E' Lateral Velocity 8.4 cm/s Mitral E to LV E' Lateral Ratio 11.6 LV E' Septal Velocity 7.8 cm/s Mitral E to LV E' Septal Ratio 12.5 EEG: Interpretation: EEG in wake and drowsy state During wakeful. Background is 9-10 cps activity In drowsy state background slows to 5-7 cps activity Photic stimulation induced no abnormality No focal or epileptiform activities noted Impression: Normal EEG in awake and drowsy state Disposition Summary Disposition Principal Diagnosis: TIA Additional Diagnosis: ESRD on HD Hypertension Hyperlipidemia Diabetes Discharge Disposition: home health services Discharge Instructions General Discharge Information Code Status: Do Not Resucitate/Intubat Patient's Diet: Regular diabetic as tolerated Patient's Activity: Full as tolerated Follow-Up Instructions/Appts: - Please follow up with your primary care physician within 1-2 weeks of discharge. Inform your primary care physician of this admission to [facility]. - Continue your current medications per discharge instructions. - Please watch for these problems: Fever, Chills, Nausea, Vomiting, Shortness of Breath, Productive Cough, Chest Pain/Discomfort, Abdominal Pain, Active Bleeding or Bloody urine/stool. Medications at Discharge Discharge Medications: Stop taking the following medications: Metoprolol Succinate (Metoprolol Succinate) 50 MG TAB.ER.24H ORAL DAILY Qty = 90 Atorvastatin Calcium (Atorvastatin Calcium) 20 MG TABLET ORAL DAILY Qty = 90 Aspirin (Aspirin*) 81 MG TAB.CHEW ORAL DAILY Continue taking these medications: Sucroferric Oxyhydroxide (Velphoro) 500 MG IRON TAB.CHEW 1 Tablet ORAL THREE TIMES DAILY Qty = 180 Comments: Last Taken:12/24/17 IRON GIVEN Time:0900 Glimepiride (Amaryl) 1 MG TABLET 1 Tablet ORAL DAILY as needed for DM Pantoprazole Sodium (Pantoprazole Sodium) 40 MG TABLET.DR 1 Tablet ORAL DAILY Qty = 30 Comments: Last Taken:12/24/17 Time:0700 Budesonide (Budesonide) 0.25 MG/2 ML AMPUL.NEB 1 Vial Inhale Solution TWICE DAILY as needed for SHORTNESS OF BREATH Qty = 60 Albuterol Sulfate (Albuterol Sulfate) 2.5 MG/3 ML (0.083 %) VIAL.NEB 1 Vial Inhale Solution EVERY 4 HOURS NEEDED as needed for SHORTNESS OF BREATH Gabapentin (Gabapentin) 100 MG CAPSULE 1 Capsule ORAL Every night Qty = 90 Comments: Last Taken:12/23/17 Time:9PM Amitriptyline HCl (Amitriptyline HCl) 10 MG TABLET 1 Tablet ORAL Every night Qty = 90 Comments: Last Taken:12/23/17 Time:9PM Sitagliptin Phosphate (Januvia) 25 MG TABLET 1 Tablet ORAL DAILY Qty = 90 Start taking the following new medications: Clopidogrel Bisulfate (Plavix) 75 MG TABLET 75 Milligram ORAL DAILY Qty = 30 No Refills Comments: Last Taken:12/24/17 Time:0900 Atorvastatin Calcium (Atorvastatin Calcium) 80 MG TABLET 80 Milligram ORAL 5 PM Qty = 30 No Refills Comments: Last Taken:12/23/17 Time:5PM Copies To: Rudy SPANGLER,Josh
== END 2017-12-24 14:30 | disposition home health service (06) | DRG 69 ==
LOC: ERH 10:32 → 1NO 13:34 → ERHI 13:34 → ENRESERV 14:01 → ENTRNSPT 14:45 → EDTRNSPT 15:00 → EDTRNSPTSTS 15:00 → CMPTRNSPT 15:14 → 1NO 15:23 → ENTRNSPT 12-24 14:07 → 1NO 12-24 14:30 → CMPTRNSPT 12-24 14:40
PROVIDERS: Emergency Medicine; Internal Medicine; Internal Medicine Nephrology
PROC: 5A1D70Z Performance of Urinary Filtration, Intermittent, Less than 6 Hours Per Day (ICD-10-PCS; principal; 2017-12-22)
DX: G45.8 Other transient cerebral ischemic attacks and related syndromes (principal); N18.6 End stage renal disease; Z68.41 Body mass index [BMI] 40.0-44.9, adult; I12.0 Hypertensive chronic kidney disease with stage 5 chronic kidney disease or end stage renal disease; E78.5 Hyperlipidemia, unspecified; I45.10 Unspecified right bundle-branch block; K21.9 Gastro-esophageal reflux disease without esophagitis; E11.22 Type 2 diabetes mellitus with diabetic chronic kidney disease; Z99.2 Dependence on renal dialysis; Z79.84 Long term (current) use of oral hypoglycemic drugs; Z86.73 Personal history of transient ischemic attack (TIA), and cerebral infarction without residual deficits; D63.1 Anemia in chronic kidney disease; I67.89 Other cerebrovascular disease; R47.1 Dysarthria and anarthria; E66.01 Morbid (severe) obesity due to excess calories; R20.0 Anesthesia of skin; Z88.5 Allergy status to narcotic agent; Z66 Do not resuscitate; Z87.891 Personal history of nicotine dependence; Z99.81 Dependence on supplemental oxygen
CPT/HCPCS: 1NP; 70551; 36592; 71045; 82436; 93005; 93010; 93306; 95816; 97161-GP; 97165-GO; 97530-GO; J0885; J1644; J3490; J7042; Q2036; S5012